=== PATIENT | female | born 1995 | race Caucasian/White ===

== ENCOUNTER → 2017-11-25 16:32 | Outpatient (CLI) | payer OTHER, SELFPAY | PROVIDERS: Family Provider Family Medicine; PCP Family Medicine; Visit Provider Nurse Practitioner Women's Health | DX: N98.9 Complication associated with artificial fertilization, unspecified (principal) | CPT/HCPCS: 87070; 87205 ==

== ENCOUNTER → 2018-10-31 07:15 | Outpatient (CLI) | payer BC, SELFPAY ==
[2018-10-21 14:54] VITALS: BMI 19.1
[2018-10-31 08:05] LABS: Estradiol 29.4 pg/mL; Follicle Stimulating Hormone 6.1 mIU/mL; Prolactin 17.3 ng/mL; Thyroid Stim Hormone (TSH) 2.27 uIU/mL (0.358-3.74)
== END ==
PROVIDERS: Family Provider Family Medicine; PCP Family Medicine; Referring Provider Nurse Practitioner Women's Health; Visit Provider Nurse Practitioner Women's Health
DX: N97.0 Female infertility associated with anovulation (principal)
CPT/HCPCS: 36415; 82670; 83001; 84146; 84443

== ENCOUNTER → 2018-11-18 12:31 | Outpatient (CLI) | payer BC, SELFPAY ==
[2018-10-21 14:54] VITALS: BMI 19.1
[2018-11-18 14:12] LABS: Progesterone Level 7.22 ng/mL (See Comment)
== END ==
PROVIDERS: Family Provider Family Medicine; PCP Family Medicine; Referring Provider Nurse Practitioner Women's Health; Visit Provider Nurse Practitioner Women's Health
DX: N97.0 Female infertility associated with anovulation (principal)
CPT/HCPCS: 36415; 84144

== ENCOUNTER → 2018-12-31 13:30 | Outpatient (CLI) | payer BC, SELFPAY ==
[2018-12-31 11:13] VITALS: BMI 19.1
[2019-01-05 17:30] LABS: HPV Reflexed? NOT INDICATED
== END ==
PROVIDERS: Family Provider Family Medicine; PCP Family Medicine; Referring Provider Obstetrics & Gynecology; Visit Provider Obstetrics & Gynecology
DX: Z12.4 Encounter for screening for malignant neoplasm of cervix (principal)
CPT/HCPCS: 87624; 88175; G0145

== ENCOUNTER → 2019-01-05 11:41 | Outpatient (CLI) | payer BC, SELFPAY ==
[2018-10-21 14:54] VITALS: BMI 19.1
[2018-12-31 11:13] VITALS: BMI 19.1
--- NOTE | 2019-01-05 12:29 | RAD_ITS ---
STUDY: HYSTEROSALPINGOGRAM. REASON FOR EXAM: Female, 23 years old. Infertility. FLUOROSCOPY TIME (if supplied): (0:12) minutes/seconds. 2 images were obtained. TECHNIQUE: A hysterosalpingogram was performed by the marine pipefitter helper. Imaging was provided. COMPARISON: None. FINDINGS: The uterus is unremarkable. Both fallopian tubes were visualized and are patent bilaterally. RAD/Salpingogram IMPRESSION: Normal hysterosalpingogram. Electronically Signed: Srinivasa Church, at 12:47 EDT , Service support ,
--- NOTE | 2019-01-07 04:13 | OP.PCM_ITS ---
Problem List (1) Infertility Status: Acute Report of Operation Date of Procedure: 01/05/19 Description of Surgical Findings:: Preop diagnosis: Infertility Postop diagnosis: Same plus bilateral tubal patency Procedure: Hysterosalpingogram Surgeon: Sherri Velazquez Implantable devices: None Complications: None Findings: Bilateral tubal patency and normal uterine cavity Operative details: Patient was taken to the x-ray room and was placed on the x- ray table and was in the dorsal lithotomy position. Speculum was placed in the vagina and the cervix prepped with Betadine and the HSG catheter was easily introduced into the uterus and speculum removed. Radiologist was brought in and while pushing radiopaque dye into the uterus via the HSG catheter the radiologist took multiple images and views and confirmed bilateral tubal patency seen. No gross uterine filling defects or abnormalities were seen. All instruments removed from the vagina and the uterus without complication. Patient tolerated the procedure well.
== END ==
PROVIDERS: Family Provider Family Medicine; PCP Family Medicine; Referring Provider Obstetrics & Gynecology; Visit Provider Obstetrics & Gynecology
DX: N97.9 Female infertility, unspecified (principal)
CPT/HCPCS: 58340; 74740

== ENCOUNTER → 2020-09-12 15:52 | Outpatient (CLI) | payer BC, SELFPAY ==
[2020-01-06 15:37] VITALS: BMI 19.1
[2020-09-12 17:57] LABS: Hematocrit 40.8 % (37-47); Mean Corp Hgb Conc 31.9 g/dL (32-36); Mean Corpuscular Hgb 28.3 pg (27.0-32.0); Mean Corpuscular Volume 88.7 fL (81-99); Platelet Count 273 K/mm3 (150-450); RBC Distribution Width CV 13.6 % (11.6-14.6); RBC Distribution Width SD 44.4 fl (35.1-43.9); White Blood Count 8.3 K/mm3 (4.4-11.0)
[2020-09-12 18:12] LABS: ALB/GLOB Ratio 0.9 RATIO (0.9-2.4); AST(SGOT) 38 U/L (15-37); Alanine Aminotransfer ALT/SGPT 29 U/L (13-56); Albumin, Serum 4.1 g/dL (3.2-5.0); Alkaline Phosphatase 47 U/L (45-117); Anion Gap 6 (5-15); BUN 15 mg/dL (7-18); BUN/Creat Ratio 19.8 RATIO (10-20); Calcium,Total 9.1 mg/dL (8.5-10.1); Chloride 104 mmol/L (98-107); Creatinine, Serum 0.76 mg/dL (0.55-1.02); EST Glomerular Filtration Rate 99 mL/min (>60); Est Glom Filt Rate - Afr Amer 120 mL/min (>60); Globulin 4.5 g/dL (2.2-4.2); Glucose 74 mg/dL (74-106); Potassium 3.3 mmol/L (3.5-5.1); Protein, Total 8.6 g/dL (6.4-8.2); Sodium Level 138 mmol/L (136-145)
[2020-09-12 18:15] LABS: Hemoglobin A1c 5.4 % (3.8-5.6)
[2020-09-12 18:52] LABS: HIV - WCH Non-Reactive (Nonreactive); Hepatitis B Surface Antigen Non-Reactive (Nonreactive); Hepatitis C Antibody Non-Reactive (Nonreactive); Rubella IgG Reactive (Nonreactive); Vitamin D,25 Hydroxy 35.4 ng/mL
[2020-09-15 01:40] LABS: Rapid Plasmin Reagin (RPR) NONREACTIVE (NONREACTIVE)
[2020-09-17 10:48] LABS: Anti-Mullerian Hormone,Serum 1.77 ng/mL (.); V-Zoster IgG (Immunity) > 4000 index (Immune >165)
== END ==
PROVIDERS: PCP Family Medicine; Referring Provider Obstetrics & Gynecology Reproductive Endocrinology; Visit Provider Obstetrics & Gynecology Reproductive Endocrinology
DX: E28.9 Ovarian dysfunction, unspecified (principal)
CPT/HCPCS: 36415; 80053; 82306; 82627; 83036; 83516; 84146; 84403; 85027; 86592; 86703; 86762; 86787; 86803; 86900; 86901; 87340; 82626

== ENCOUNTER → 2021-01-13 14:17 | Outpatient (CLI) | payer BC, SELFPAY ==
[2021-01-10 13:27] VITALS: BMI 19.1
--- NOTE | 2021-01-13 14:18 | US_ITS ---
STUDY: ULTRASOUND BREAST - LEFT REASON FOR EXAM: Female, 25 years old. Palpable lump left breast. TECHNIQUE: Axial and longitudinal images of the LEFT breast were performed with a high resolution ultrasound transducer. # OF IMAGES: 18 COMPARISON: Comparison is made with prior mammogram done earlier in the day. FINDINGS: LEFT Breast: The lower inner quadrant of the left breast was examined by ultrasound. No sonographic abnormality is seen. US/Breast Limited Unilateral IMPRESSION: No sonographic abnormality is seen. ASSESSMENT CATEGORY: BIRADS Category 1: Negative. A letter regarding these results will be sent to the patient by the facility within 30 days. Electronically Signed: Srinivasa Church MD at 13:07 EDT , Service support ,
--- NOTE | 2021-01-13 14:19 | BI_ITS ---
MAMMOGRAPHY - BILATERAL DIAGNOSTIC REASON FOR EXAM: Female, 25 years old. Breast lump in the left lower inner quadrant. PERTINENT HISTORY: Non-contributory. TECHNIQUE: Digital bilateral breast kori (3D mammographic acquisition) in the CC and MLO projections. 2-D mediolateral oblique (MLO) and craniocaudad (CC) views of both breasts were obtained. CAD: Full Field Digital Mammography with Computer Added Detection was performed. COMPARISON: None. Baseline examination. FINDINGS: Breast Composition: The breasts are extremely dense, which lowers the sensitivity of mammography. There are no dominant masses or suspicious calcifications. No other significant abnormalities are identified. BI/DIAG MAMM W/CAD, BILAT IMPRESSION: Negative diagnostic mammogram. With the patient''s history of a palpable lump in the lower inner quadrant of the left breast, correlation with ultrasound is recommended. ASSESSMENT CATEGORY: BIRADS Category 0: Incomplete. Need additional imaging evaluation. A letter regarding these results will be sent to the patient by the facility within 30 days. Approximately 10% of breast cancers are not detected by mammography. A normal mammogram should not delay biopsy of a clinically suspicious abnormality. Electronically Signed: Srinivasa Church MD at 15:10 EDT , Service support ,
== END ==
PROVIDERS: PCP Family Medicine; Referring Provider Obstetrics & Gynecology; Visit Provider Obstetrics & Gynecology
DX: N63.20 Unspecified lump in the left breast, unspecified quadrant (principal)
CPT/HCPCS: 76642; 77062; 77066; G0279

== ENCOUNTER → 2021-12-14 | Outpatient (CLI) | payer BC, SELFPAY ==
[2021-12-14 15:35] LABS: Absolute Neutrophil Count 6.2 X10^3/uL (2.0-7.7); Basophil# 0.04 X10^3/uL; Basophil% 0.4 % (0-1); Hemoglobin 12.9 g/dL (12.0-15.0); Lymphocyte % 26.9 % (19-41); Mean Corp Hgb Conc 33.9 g/dL (32-36); Mean Corpuscular Hgb 29.8 pg (27.0-32.0); Mean Corpuscular Volume 87.8 fL (81-99); Mean Platelet Vol. 9.2 fl (6.2-12.0); Monocyte% 7.2 % (0-10); NRBC Flagged by Analyzer 0 % (0-5); Neutrophil # 6.19 X10^3/uL (2.7-7.7); Platelet Count 292 K/mm3 (150-450); RBC Distribution Width CV 13.3 % (11.6-14.6); RBC Distribution Width SD 42.7 fl (35.1-43.9); Red Blood Count 4.33 M/mm3 (4.2-5.4); White Blood Count 9.7 K/mm3 (4.4-11.0)
[2021-12-14 16:32] LABS: NATERA MAILED SPECIMEN
[2021-12-14 16:54] LABS: Amphetamine Urine VISTA NEGATIVE (<1000 ng/mL); Barbiturate Urine VISTA NEGATIVE (< 200 ng/mL); Benzodiazepine Urine VISTA NEGATIVE (< 200 ng/mL); Cocaine Urine VISTA NEGATIVE (< 300 ng/mL); Ecstacy Urine VISTA NEGATIVE (< 500 ng/mL); Methadone Urine VISTA NEGATIVE (< 300 ng/mL); PCP Urine VISTA NEGATIVE (< 25 ng/mL); THC Urine VISTA NEGATIVE (< 50 ng/mL); Vista UDS pH Range 4
[2021-12-15 09:28] LABS: HIV - WCH Non-Reactive (Nonreactive); Hepatitis B Surface Antigen Non-Reactive (Nonreactive); Hepatitis C Antibody Non-Reactive (Nonreactive); Rubella IgG Reactive (Nonreactive); Syphilis Antibodies Non-reactive
[2021-12-18 12:08] LABS: Chlamydia By Nucleic Acid AMP Negative (Negative)
[2021-12-18 12:19] LABS: Gonococcus By Nucleic Acid AMP Negative (Negative)
[2021-12-21 15:27] LABS: HPV APTIMA, High Risk Negative (Negative)
== END | disposition home or self-care (01) ==
LOC: PAVLAB 15:20
PROVIDERS: PCP Family Medicine; Referring Provider Obstetrics & Gynecology; Visit Provider Obstetrics & Gynecology
DX: Z34.90 Encounter for supervision of normal pregnancy, unspecified, unspecified trimester (principal)
CPT/HCPCS: 36415; 80307; 85025; 86703; 86762; 86780; 86803; 86850; 86900; 86901; 87086; 87340; 87491; 87591; 87624; 88175; G0145

== ENCOUNTER → 2022-03-09 | Outpatient (CLI) | payer BC, SELFPAY ==
[2022-03-09 17:54] LABS: Hematocrit 32.1 % (37-47); Hemoglobin 10.4 g/dL (12.0-15.0); Mean Corp Hgb Conc 32.4 g/dL (32-36); Mean Corpuscular Hgb 30.4 pg (27.0-32.0); Mean Corpuscular Volume 93.9 fL (81-99); Platelet Count 241 K/mm3 (150-450); RBC Distribution Width CV 14.2 % (11.6-14.6); RBC Distribution Width SD 48.9 fl (35.1-43.9); Red Blood Count 3.42 M/mm3 (4.2-5.4)
== END | disposition home or self-care (01) ==
LOC: LAB 15:59
PROVIDERS: PCP Family Medicine; Referring Provider Obstetrics & Gynecology; Visit Provider Obstetrics & Gynecology
DX: O26.86 Pruritic urticarial papules and plaques of pregnancy (PUPPP) (principal); Z3A.00 Weeks of gestation of pregnancy not specified
CPT/HCPCS: 36415; 85027

== ENCOUNTER → 2022-04-24 | Outpatient (CLI) | payer BC, SELFPAY ==
[2022-04-24 15:11] LABS: Absolute Lymphocyte Count 1.54 X10^3/uL (0.83-4.51); Absolute Neutrophil Count 6.8 X10^3/uL (2.0-7.7); Basophil# 0.03 X10^3/uL; Basophil% 0.3 % (0-1); Eosinophil# 0.06 X10^3/uL; Eosinophils% 0.7 % (0-5); Hematocrit 33.6 % (37-47); Lymphocyte # 1.54 X10^3/ul (0.83-4.51); Lymphocyte % 16.7 % (19-41); Mean Corp Hgb Conc 32.7 g/dL (32-36); Mean Corpuscular Hgb 30.6 pg (27.0-32.0); Mean Corpuscular Volume 93.6 fL (81-99); Mean Platelet Vol. 9.8 fl (6.2-12.0); Monocyte# 0.64 X10^3/uL; Monocyte% 6.9 % (0-10); NRBC Flagged by Analyzer 0 % (0-5); Neutrophil # 6.78 X10^3/uL (2.7-7.7); Neutrophil % 73.7 % (47-70); Platelet Count 209 K/mm3 (150-450); RBC Distribution Width CV 15.2 % (11.6-14.6); RBC Distribution Width SD 51.8 fl (35.1-43.9); Red Blood Count 3.59 M/mm3 (4.2-5.4); White Blood Count 9.2 K/mm3 (4.4-11.0)
[2022-04-24 15:26] LABS: Glucose Challenge Gest 1H 50g 119 mg/dL (70-140)
== END | disposition home or self-care (01) ==
LOC: PAVLAB 14:45
PROVIDERS: PCP Family Medicine; Referring Provider Nurse Practitioner Women's Health; Visit Provider Nurse Practitioner Women's Health
DX: Z34.90 Encounter for supervision of normal pregnancy, unspecified, unspecified trimester (principal)
CPT/HCPCS: 36415; 82950; 85025

== ENCOUNTER → 2022-05-23 | Outpatient (CLI) | payer BC, SELFPAY ==
[2022-05-23 16:12] LABS: Absolute Lymphocyte Count 2.36 X10^3/uL (0.83-4.51); Absolute Neutrophil Count 6.4 X10^3/uL (2.0-7.7); Basophil# 0.04 X10^3/uL; Basophil% 0.4 % (0-1); Eosinophil# 0.07 X10^3/uL; Eosinophils% 0.7 % (0-5); Hematocrit 33.2 % (37-47); Hemoglobin 10.9 g/dL (12.0-15.0); Lymphocyte # 2.36 X10^3/ul (0.83-4.51); Lymphocyte % 24.5 % (19-41); Mean Corp Hgb Conc 32.8 g/dL (32-36); Mean Corpuscular Hgb 30.8 pg (27.0-32.0); Mean Corpuscular Volume 93.8 fL (81-99); Monocyte# 0.75 X10^3/uL; Monocyte% 7.8 % (0-10); NRBC Flagged by Analyzer 0.3 % (0-5); Neutrophil # 6.36 X10^3/uL (2.7-7.7); Neutrophil % 65.9 % (47-70); Platelet Count 175 K/mm3 (150-450); RBC Distribution Width CV 14.5 % (11.6-14.6); Red Blood Count 3.54 M/mm3 (4.2-5.4); White Blood Count 9.7 K/mm3 (4.4-11.0)
[2022-05-23 16:36] LABS: ALB/GLOB Ratio 0.6 RATIO (0.9-2.4); AST(SGOT) 18 U/L (15-37); Alanine Aminotransfer ALT/SGPT 13 U/L (13-56); Albumin, Serum 2.5 g/dL (3.2-5.0); Alkaline Phosphatase 90 U/L (45-117); Anion Gap 7 (5-15); BUN 11 mg/dL (7-18); BUN/Creat Ratio 14.7 RATIO (10-20); Chloride 105 mmol/L (98-107); Creatinine, Serum 0.75 mg/dL (0.55-1.02); EST Glomerular Filtration Rate 99 mL/min (>60); Est Glom Filt Rate - Afr Amer 120 mL/min (>60); Globulin 4.5 g/dL (2.2-4.2); Glucose 87 mg/dL (74-106); Potassium 4.1 mmol/L (3.5-5.1); Sodium Level 136 mmol/L (136-145)
[2022-05-23 19:49] LABS: Protein, Urine (Random) 13.3 mg/dL (<11.9); Protein:Creat Ratio 231 mg/g CRE (0-200)
== END | disposition home or self-care (01) ==
PROVIDERS: PCP Family Medicine; Referring Provider Obstetrics & Gynecology; Visit Provider Obstetrics & Gynecology
DX: O16.3 Unspecified maternal hypertension, third trimester (principal); Z3A.00 Weeks of gestation of pregnancy not specified
CPT/HCPCS: 36415; 80053; 82570; 84156; 85025

== ENCOUNTER 2022-06-06 16:20 | Outpatient (CLI) | payer BC, SELFPAY ==
[2022-06-06] VITALS (8 sets, daily range): BP systolic 124–155; BP diastolic 83–94; PULSE 73–88; TEMP 36.9; O2SAT 98–100; BMI 24.5
[2022-06-06 17:23] LABS: Hematocrit 35.2 % (37-47); Hemoglobin 11.8 g/dL (12.0-15.0); Mean Corp Hgb Conc 33.5 g/dL (32-36); Mean Corpuscular Hgb 31.5 pg (27.0-32.0); Mean Corpuscular Volume 93.9 fL (81-99); Mean Platelet Vol. 11.8 fl (6.2-12.0); Platelet Count 175 K/mm3 (150-450); RBC Distribution Width CV 14.9 % (11.6-14.6); RBC Distribution Width SD 51.1 fl (35.1-43.9); Red Blood Count 3.75 M/mm3 (4.2-5.4); White Blood Count 9.9 K/mm3 (4.4-11.0)
[2022-06-06 17:38] LABS: Protein, Urine (Random) 83.4 mg/dL (<11.9); Protein:Creat Ratio 1163 mg/g CRE (0-200)
[2022-06-06 17:40] LABS: AST(SGOT) 21 U/L (15-37); Alanine Aminotransfer ALT/SGPT 14 U/L (13-56); EST Glomerular Filtration Rate 92 mL/min (>60); Est Glom Filt Rate - Afr Amer 112 mL/min (>60); Estimated Creatinine Clearance 88.15 ml/min; Uric Acid 4.6 mg/dL (2.6-6.0)
[2022-06-06] MEDS: 0.9% Saline Lock 10 ML Syringe IV (18:16)
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
[2022-06-06] MEDS: Betamethasone/Betamethasone 30 MG/5 ML Vial 12 MG IM (18:41)
== END 2022-06-06 18:45 | disposition home or self-care (01) ==
LOC: WPOUT 16:23 → WP 16:23
PROVIDERS: PCP Family Medicine; Referring Provider Obstetrics & Gynecology; Visit Provider Obstetrics & Gynecology
DX: O14.90 Unspecified pre-eclampsia, unspecified trimester (principal)
CPT/HCPCS: 59025; 59050; 82565; 82570; 84156; 84450; 84460; 84550; 85027; 96372; 99218; A4216; G0378; J0702

== ENCOUNTER 2022-06-07 17:55 | Outpatient (CLI) | payer BC, SELFPAY ==
[2022-06-07 18:00] VITALS: BMI 24.7
[2022-06-07 18:08] VITALS: BP 157/84; PULSE 74; TEMP 36.7
[2022-06-07 18:09] VITALS: BP 146/73; PULSE 85
[2022-06-07] MEDS: Betamethasone/Betamethasone 30 MG/5 ML Vial 12 MG IM (18:13)
--- NOTE | 2022-06-07 18:16 | OB.TRI.PN ---
Progress Notes Date of Service: 06/07/22 Progress Note: celestone today for prematurity preeclampsia
== END 2022-06-07 18:18 | disposition home or self-care (01) ==
LOC: WPOUT 17:57 → WP 17:58
PROVIDERS: PCP Family Medicine; Referring Provider Obstetrics & Gynecology; Visit Provider Obstetrics & Gynecology
DX: O14.90 Unspecified pre-eclampsia, unspecified trimester (principal); Z79.899 Other long term (current) drug therapy; Z3A.00 Weeks of gestation of pregnancy not specified; Z23 Encounter for immunization
CPT/HCPCS: 96372; 99218; G0378; J0702

== ENCOUNTER → 2022-06-08 | Outpatient (CLI) | payer BC, SELFPAY ==
--- NOTE | 2022-06-08 15:37 | US_ITS ---
STUDY: OBSTETRICAL ULTRASOUND - BIOPHYSICAL PROFILE REASON FOR EXAM: Female, 26 years old DFM. LMP: 10/04/2021. PRIOR ULTRASOUND: None. TECHNIQUE: Transabdominal TECHNICAL QUALITY: Adequate. FINDINGS: There is a single intrauterine fetus. The fetus is in a cephalic presentation. There is demonstrated cardiac activity with a heart rate of 147 bpm. There is a normal amniotic fluid volume. The largest amniotic fluid pocket measures 8.3 cm. The amniotic fluid index (IBIS) is 14.41 cm. The placenta is anterior in location and is not low lying. There is a left lateral accessory lobe. There are Grade 3 placental changes. Age by LMP: 35 weeks, 2 days. FOZIA by LMP: 07/11/2022. BIOPHYSICAL PROFILE: Breathing Movements (FBM): 2 Gross Body Movements (GBM): 2 Tone (FT): 2 Amniotic Fluid Volume (AFV): 2 TOTAL SCORE: US/Biophysical Prof W/O Non Stres IMPRESSION: Normal biophysical profile of 03/26. Electronically Signed: Nate Olmos DO at 18:13 EDT ,
== END | disposition home or self-care (01) ==
LOC: US 15:36
PROVIDERS: PCP Family Medicine; Referring Provider Obstetrics & Gynecology; Visit Provider Obstetrics & Gynecology
DX: O36.8190 Decreased fetal movements, unspecified trimester, not applicable or unspecified (principal)
CPT/HCPCS: 76819

== ENCOUNTER 2022-06-09 20:10 | Inpatient (IN) | payer BC, SELFPAY ==
[2022-06-07 18:08] VITALS: TEMP 36.7
[2022-06-09] VITALS (26 sets, daily range): BP systolic 83–168; BP diastolic 58–116; PULSE 61–135; RESP 16–18; TEMP 36.8–38.1; O2SAT 94–100; BMI 25.2
[2022-06-09 19:38] LABS: Protein:Creat Ratio 1395 mg/g CRE (0-200)
[2022-06-09] MEDS: Labetalol (Prefilled) 20 MG/4 ML IV (20:20)
[2022-06-09] MEDS: Lactated Ringers 1,000 ML 999 ML IV (20:20)
[2022-06-09 20:26] LABS: Hematocrit 33.9 % (37-47); Hemoglobin 10.9 g/dL (12.0-15.0); Mean Corp Hgb Conc 32.2 g/dL (32-36); Mean Corpuscular Hgb 30.2 pg (27.0-32.0); Mean Corpuscular Volume 93.9 fL (81-99); Mean Platelet Vol. 12.3 fl (6.2-12.0); Platelet Count 203 K/mm3 (150-450); RBC Distribution Width CV 15.1 % (11.6-14.6); RBC Distribution Width SD 52.1 fl (35.1-43.9); Red Blood Count 3.61 M/mm3 (4.2-5.4); White Blood Count 12.3 K/mm3 (4.4-11.0)
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
--- NOTE | 2022-06-09 20:48 | DCINST_ITS ---
Discharge Instructions Diet Discharge Diet: No restrictions Activity Discharge Activity: May Not Drive (for 2 weeks or while taking narcotic pain medications.), May Shower and May Take a Tub Bath (in 7 days.) May resume sexual activity in: 4-6 weeks Weight Bearing Status: Full weight bearing Lifting Restrictions: 20 pounds Dressing / Incision Call your doctor if your incision/area has: Continuous Slow Oozing, Sudden Increased Bleeding, Increased Pain/ Swelling, Increased Redness and Foul Smelling Discharge Call your doctor if you observe: Fever of 101 or Higher and Using more than 1 pad per hour Suture Line Care: Avoid Pulling/Pushing and Avoid Pinching/Bending Cleanse incision/area with: Soap & Water and Keep Dressing Clean & Dry Follow Up Care Please Follow Up With: Mya Cantu DO When: Call [phone] to make an appointment for an incision check in 1-2 weeks. Test Results: Test results from this visit will be discussed in further detail at your follow- up appointment, if applicable. Discharge Plan Admission Admit Date/Time: 06/09/22 20:10 Attending Provider: Mya Cantu Primary Care Provider: Shawanda Ortega Discharge Orders/Prescriptions Prescriptions: No Action prenat.vits,andrea,[id number] tablet 1 tab PO DAILY ferrous sulfate [iron] 325 mg (65 mg iron) Tablet 325 mg PO DAILY albuterol 90 mcg/actuation Aerosol 90 mcg INHALATION PRN PRN (Reason: asthma) Referrals / Follow Up: Shawanda Ortega DO [Primary Care Provider] -
[2022-06-09] MEDS: Sodium Citrate/Citric Acid 30 ML UDC PO (20:58)
[2022-06-09] MEDS: Acetaminophen 500 MG Tablet 1000 MG PO (20:58)
[2022-06-09] MEDS: Cefazolin 2 GM in 0.9% Normal Saline 100 ML IV (21:12)
[2022-06-09] MEDS: Lactated Ringers 1,000 ML 150 ML IV (21:15)
--- NOTE | 2022-06-09 21:24 | PLAC_PTH ---
PATIENT: GUCCI GOMEZ LOC: [facility] U#:[id number] AGE/SX: 26/F ROOM: WP003 RE06/09/[address]: Dr. Mya Cantu DO : 1995 BED: 1 DIS: 06/14/2022 SPEC #: [id number] RECD: 06/10/22 03:10 STATUS: ANTONIO ALCIRA #: [id number] FABIOLA: 06/09/22 21:[address]: Mya Cantu DEPT: SURGICAL PATHOLOGY RECD BY: Meenakshi Choudhary ENTERED: 06/11/22 08:53 SP TYPE: PLACENTA OTHR DR: Dr. Shawanda Ortega DO Tissues: Placenta, NOS Procedures: Surgery Specimen Level V HEADER OPERATION: Primary section PRE-OP DIAGNOSIS: Low lying placenta and suspect placental acreda TISSUE SUBMITTED: Placenta MICROSCOPIC DIAGNOSIS Epps placenta (486 gm): Umbilical cord ? trivascular with no inflammation. Placental membranes - No pathologic change. Placental disc ? Manny-Gallito change, increased intraparenchymal fibrin plaques and microcalcifications. AM:denisha 06/12/2022 MICROSCOPIC DESCRIPTION Slides are reviewed. GROSS DESCRIPTION SPECIMEN: PLACENTA / CLINICAL INFORMATION: A. Weight: 2.08 kg B. Gestational Age: 35 weeks C. Sex: Female PLACENTAL WEIGHT (POST FIXATION): 486 gm PLACENTAL DIMENSIONS: 25 x 12 x 2.5 cm PLACENTAL SHAPE: Usual ovoid PLACENTAL WEIGHT FOR GESTATIONAL AGE: Within 10-99th percentile (over/under percentile) MEMBRANES - Present A. Insertion: Marginal B. Site of rupture from edge: At edge of placental disc C. Color of membrane: Stephenson-miguel D. Abnormalities: None UMBILICAL CORD - Present A. Color: Stephenson-miguel B. Insertion: Eccentric C. Length: 33 cm D. Diameter: 1.5 cm E. Number of vessels: Three F. Abnormalities: None PLACENTAL DISC - Present A. Color of surface: Stephenson-miguel B. surface abnormalities: None C. Maternal cotyledons: Intact with minimal tears D. Attached retro placental clot: No clot E. Cut surface: Dark red and spongy F. Lesions: None G. Separate clot: Absent SECTIONS SUBMITTED: 1. Umbilical cord ( end notched) 2. Umbilical cord, placental end 3. Membrane roll 4. Placental disc, and maternal surfaces 5. Placental disc, and maternal surfaces 6. Placental disc, and maternal surfaces AM:denisha 06/11/2022 TC:5 CPT: 79494
[2022-06-09] MEDS: miSOPROStol 200 MCG Tablet 1000 MCG VAGINAL (21:28)
--- NOTE | 2022-06-09 22:04 | EX.PCM.OBRPT ---
Assessment & Plan (1) Pre-eclampsia: (2) Placenta previa antepartum in second trimester: COMMENT: FU at 28 weeks, pelvic rest US 04/20/22: not resolved, plan csection for 36-37 wks. now low lying at 1 cm but MFM recommending section. (3) Asthma affecting , antepartum: COMMENT: controlled mild intermittent, albuterol (4) Supervision of high risk , antepartum: COMMENT: PRR FOZIA:07/11/22 shazia Peña Spouse: Canelo (5) : QUALIFIERS: Weeks of gestation: 35 weeks Qualified Code(s): Z3A.35 - 35 weeks gestation of COMMENT: NIPT LR- Negative carrier patient and FOB at I. Anatomy US normal (6) Conceived by in vitro fertilization: COMMENT: [facility]. Oral estradiol and progesterone inj until 12/13 echo 22-24 wk-scheduled with MF, 03/15 nl echo Maternal Data Information FOZIA Calculator Estimated Delivery Date Method Current WG Current Estimate 07/11/22 Ultrasound #1 35w 3d Other Estimates 07/08/22 LMP (Certain) 35w 6d Final FOZIA: 07/11/22 Final FOZIA Source: LMP (IVF ) Details Operative Information Date of Procedure: 06/09/22 Pre-Operative Diagnosis: 35 weeks 3 days, , Pre-eclampsia with severe features, low lying placenta Post-Operative Diagnosis: 35 weeks 3 days, , Pre-eclampsia with severe features, low lying placenta, suspect placenta accreta Classification: HEATHER Procedure Type: low transverse supervisor accounts receivable #1: Shayy Lu Type of Anesthesia: Spinal Anesthesiologist: Lennie Vasquez Antibiotic Given: Ancef 2 grams IV x1 Drain: Vinson to straight drain Estimated Blood Loss: 1300 Findings Description of Procedure: Spinal anesthesia was placed without difficulty. Vinson catheter was placed. The patient was placed in the dorsal supine position with leftward tilt. Patient was prepped and draped in the normal sterile fashion. Pfannenstiel skin incision was made with the scalpel and carried through to the underlying layer of fascia with the scalpel. Fascia was nicked in the midline and the incision extended laterally. The rectus bellies were dissected off superiorly and inferiorly with out complication both sharply and bluntly. The peritoneum was entered digitally. The incision was stretched and a low transverse uterine incision was made with the scalpel. The placenta was noted to be anterior and the infant's head was found lying behind it. The membranes were ruptured and the infant's head was delivered atraumatically followed by the anterior and posterior shoulders without complication the rest of the delivered. The cord was clamped and cut and the infant was handed off to awaiting nurse. The placenta was delivered manually and was found to be adherent to the uterine wall over a small portion just a few cm above the incision site. A three-vessel cord was noted and the placenta was inspected and passed off for pathology analysis. The uterus was exteriorized cleared of all clots and debris. 1000mg of cytoted was inserted intrauterine and the incision was closed in a double layer closure using #1Vicryl and #1 Monocryl. TXA was also started at this time. A left sided broad ligament hematoma and a lower uterine segment hematoma was noted both small and minor. Sutures were placed around the left uterine artery and over the side of the lower uterine segment to creat excellent hemostasis. Careful examination was performed before returning the uterus to the abdomen. The ovaries and fallopian tubes were noted to be within normal limits. The uterus was returned to the maternal abdomen and gutters were cleared of all clots and debris. The peritoneum was closed with 3-0 Monocryl in a running fashion. Gloves were changed prior to fascial closure. Fascia was closed with 0 PDS in a running fashion. Subcutaneous tissue was copiously irrigated and the skin was closed with 3-0 Monocryl in a subcuticular fashion. Mepilex dressing was applied without complication. Patient was taken to recovery in stable condition. It was discussed with the patient that based on the clinical information obtained during this encounter, combined with her history, at this time I would recommend possible TOLAC or rpt for future deliveries if further pregnancies are desired and adequate time to recover has occurred. Presentation: Positive for Vertex Amniotic Membrane Rupture Type: Artificial Amniotic Fluid Description: Clear Placental Delivery Description: Manual Removal Placenta Disposition: Sent to Pathology Cord Vessel Description: 3 Vessels Cord Entanglement: None A Gender: Female (1 minute): 8 (5 minute): 9 Delayed Cord Clamping: Yes Complications Risks of Surgery Discussed w/Patient: Bleeding, Anesthesia Risks, Infection, Need for Future C-Sections and Injury to surrounding structure(s) including bowel and bladder Multi Select Codes Urinary/Genital Urinary/Genital CPT Codes: 39258 Delivery global pkg
[2022-06-09] MEDS: Lactated Ringers 1,000 ML 100 ML IV (22:20)
[2022-06-09 22:46] LABS: Hematocrit 27.3 % (37-47); Mean Corpuscular Hgb 31.7 pg (27.0-32.0); Mean Corpuscular Volume 96.1 fL (81-99); Mean Platelet Vol. 11.4 fl (6.2-12.0); POSITIVE COUNT YES; POSITIVE MORPHOLOGY YES; Platelet Count 193 K/mm3 (150-450); RBC Distribution Width CV 15.2 % (11.6-14.6); RBC Distribution Width SD 52.6 fl (35.1-43.9); Red Blood Count 2.84 M/mm3 (4.2-5.4); White Blood Count 13.5 K/mm3 (4.4-11.0)
[2022-06-09 22:53] LABS: Differential Indicated MANUAL DIFF
[2022-06-09 22:56] LABS: International Normalized Ratio 1.1; Prothrombin Time (Protime)PT. 13.7 SECONDS (11.7-14.9)
[2022-06-09 22:57] LABS: Partial Thromboplast Time 28.7 Seconds (24.1-36.2)
[2022-06-09 23:39] LABS: Lymphocyte 28 % (19-41); Metamyelocyte 1 % (0-1); Monocyte 7 % (0-10); Myelocyte 2 % (0-0); Neutrophil-Band 3 % (0-5); Neutrophil-Segmented 59 % (47-70); Nucleated Red Bld Cells,Manual 1 % (0-5); Total Cells Counted 100 (MANUAL DIFF)
[2022-06-09 23:43] LABS: Absolute Lymphocyte Count 3.77 X10^3/uL (0.83-4.51); Absolute Neutrophil Count 8.4 X10^3/uL (2.0-7.7)
[2022-06-09 23:44] LABS: Anisocytosis RARE; Hypochromasia RARE; Macrocytosis RARE; Platelet Estimate ADEQUATE (ADEQ); Red Cell Morphology N CHROM NORMAL (NORM C&C)
[2022-06-10] VITALS (25 sets, daily range): BP systolic 126–151; BP diastolic 66–98; PULSE 62–114; RESP 16–18; TEMP 36.6–37.9; O2SAT 93–100
--- NOTE | 2022-06-10 00:04 | NURSING ---
Multiple blankets removed from patient. Room temp turned down.
[2022-06-10] MEDS: Acetaminophen 500 MG Tablet 1000 MG PO ×4 (02:47→21:26)
[2022-06-10] MEDS: Cefazolin 1 GM/50 ML BAG IV ×2 (03:15→11:44)
[2022-06-10 06:35] LABS: Hematocrit 25.2 % (37-47); Hemoglobin 8.2 g/dL (12.0-15.0); Mean Corp Hgb Conc 32.5 g/dL (32-36); Mean Corpuscular Hgb 30.7 pg (27.0-32.0); Mean Corpuscular Volume 94.4 fL (81-99); Platelet Count 140 K/mm3 (150-450); RBC Distribution Width CV 15.2 % (11.6-14.6); RBC Distribution Width SD 52.5 fl (35.1-43.9); Red Blood Count 2.67 M/mm3 (4.2-5.4); White Blood Count 20.2 K/mm3 (4.4-11.0)
[2022-06-10] MEDS: Senna/Docusate Sodium 1 Tablet PO (09:27)
--- NOTE | 2022-06-10 10:55 | PCM.PN.OB ---
Subjective Subjective Patient is laying in bed comfortably without complaints. She states that she slept on an off during the night. Lochia is mild and pain is minimal. Objective Data Objective Data Vital Signs: Vital Signs Temp Pulse Resp BP Pulse Ox O2 Del Method 100.0 F H 70 18 138/80 H 100 Room Air 06/10/22 08:05 06/10/22 09:00 06/10/22 09:00 06/10/22 08:06 06/10/22 09:00 06/10/22 09:00 Oxygen Delivery Method Room Air Weight: 142 lb 6.4 oz Body Mass Index (BMI) 25.2 Intake & Output: Intake and Output for Last 24 Hours 06/08/22 06/09/22 06/10/22 23:59 23:59 23:59 Intake Total 162.5 / 162.5 2870 / 2870 Output Total 500 / 500 1000 / 1000 Balance -337.5 / -337.5 1870 / 1870 Lab / Micro Data Result Diagrams: 06/10/22 06:25 Labs: Laboratory Results - last 24 hr 06/09/22 19:15: U Random Total Protein 114.0 H, Urine Creatinine 81.70, Protein/Creatinin Ratio 1395 H 06/09/22 19:40: WBC 12.3 H, RBC 3.61 L, Hgb 10.9 L, Hct 33.9 L, MCV 93.9, MCH 30.2, MCHC 32.2, RDW Std Deviation 52.1 H, RDW Coeff of Yenny 15.1 H, Plt Count 203, MPV 12.3 H 06/09/22 20:55: Blood Type A POSITIVE, Antibody Screen NEGATIVE 06/09/22 20:55: Crossmatch See Detail 06/09/22 22:30: WBC 13.5 H, RBC 2.84 L, Hgb 9.0 L, Hct 27.3 L, MCV 96.1, MCH 31.7, MCHC 33.0, RDW Std Deviation 52.6 H, RDW Coeff of Yenny 15.2 H, Plt Count 193, MPV 11.4, Neut % (Auto) Not Reportable, Absolute Neuts (auto) 8.4 H, Absolute Lymphs (auto) 3.77, Total Counted 100, Neutrophils % (Manual) 59, Band Neutrophils % 3, Lymphocytes % (Manual) 28, Monocytes % (Manual) 7, Metamyelocytes % 1, Myelocytes % 2 H, Nucleated RBCs/100 WBC 1, Diff Path Review May foll, Platelet Estimate ADEQUATE, RBC Morphology N CHROM, Hypochromasia RARE, Anisocytosis RARE, Macrocytosis RARE 06/09/22 22:30: PT 13.7, INR 1.1, APTT 28.7 06/10/22 06:25: WBC 20.2 H, RBC 2.67 L, Hgb 8.2 L, Hct 25.2 L, MCV 94.4, MCH 30.7, MCHC 32.5, RDW Std Deviation 52.5 H, RDW Coeff of Yenny 15.2 H, Plt Count 140 L, MPV 11.0 Micro: Microbiology 06/09/22 20:20 Nasal Secretion SARS-CoV-2 Antigen (Rapid) - Final ROS Constitutional Constitutional: Reports systems reviewed and no addt'l complaints, except as documented Cardiovascular Cardiovascular: Denies chest pain, dizziness, dyspnea or irregular heart rhythm Respiratory/Chest Respiratory/Chest: Denies cough, pain on inspiration or shortness of breath at rest Gastrointestinal Gastrointestinal: Denies abdominal pain, nausea or vomiting Genitourinary Genitourinary: Denies burning urination Musculoskeletal Musculoskeletal: Denies muscle cramps, muscle spasms or muscle weakness Neurologic Neurologic: Denies confusion, dizziness, headache(s) or lack of coordination Psychiatric Psychiatric: Denies anxiety, behavioral changes or depression Physical Exam HEENT normocephalic Resp normal respiratory effort and normal air movement GI soft to palpation, non-tender and non-distended Rectal Exam: other Other Details: Incision is clean, dry, and intact no CVA tenderness Extremity normal to inspection General Extremity: edema bilateral (trace ) Assessment & Plan (1) Pre-eclampsia: PLAN: s/p LTCS PPD # 1- pp hemorrhage secondary to accreta on the lower uterine segment and small broad ligament hematoma. Continue to hold toradol. rpt cbc tomorrow -pre- with severe features. bp's stable ok to hold magnesium for now. 1. routine post care 2. breast feeding- support given 3. rh positive 4. rubella immune (2) Anemia: COMMENT: add Fe (3) Placenta previa antepartum in second trimester: COMMENT: FU at 28 weeks, pelvic rest US 04/20/22: not resolved, plan csection for 36-37 wks. now low lying at 1 cm but MFM recommending section. (4) Asthma affecting , antepartum: COMMENT: controlled mild intermittent, albuterol (5) Supervision of high risk , antepartum: COMMENT: PRR FOZIA:07/11/22 shazia Peña Spouse: Canelo (6) : QUALIFIERS: Weeks of gestation: 35 weeks Qualified Code(s): Z3A.35 - 35 weeks gestation of COMMENT: NIPT LR- Negative carrier patient and FOB at I. Anatomy US normal (7) Conceived by in vitro fertilization: COMMENT: [facility]. Oral estradiol and progesterone inj until 12/13 echo 22-24 wk-scheduled with MFM, 03/15 nl echo
[2022-06-10] MEDS: Ibuprofen 600 MG Tablet PO ×2 (12:35→18:18)
[2022-06-10] MEDS: 0.9% Saline Lock 10 ML Syringe IV (21:25)
[2022-06-11] VITALS (216 sets, daily range): BP systolic 77–162; BP diastolic 40–101; PULSE 59–130; RESP 14–18; TEMP 36.1–37.3; O2SAT 87–100; BMI 23.9
[2022-06-11] MEDS: Ibuprofen 600 MG Tablet PO ×4 (00:25→22:42)
--- NOTE | 2022-06-11 02:38 | NURSING ---
pt up to the bathroom returned to bed. Pt visibly tremoring. denies headache or visual disturbances. denies epigastric pain. Bilateral bicep reflexes are +3. Bilateral patellar reflexes are +4. BP 158/86. Dr. Beltran notified of above. new order for IV demerol.
[2022-06-11] MEDS: Acetaminophen 500 MG Tablet 1000 MG PO ×4 (02:57→21:04)
[2022-06-11] MEDS: 0.9% Saline Lock 10 ML Syringe IV (03:01)
[2022-06-11] MEDS: Magnesium Sulfate 4gm/100mL 4 GM/100 ML IV.SOLN. IV (03:43)
[2022-06-11] MEDS: NIFEdipine 30 MG Tablet PO (03:52)
[2022-06-11 04:08] LABS: Absolute Lymphocyte Count 3.12 X10^3/uL (0.83-4.51); Absolute Neutrophil Count 23.6 X10^3/uL (2.0-7.7); Basophil# 0.06 X10^3/uL; Basophil% 0.2 % (0-1); Eosinophil# 0.03 X10^3/uL; Eosinophils% 0.1 % (0-5); Hematocrit 26.6 % (37-47); Hemoglobin 8.7 g/dL (12.0-15.0); Lymphocyte # 3.12 X10^3/ul (0.83-4.51); Lymphocyte % 10.6 % (19-41); Mean Corp Hgb Conc 32.7 g/dL (32-36); Mean Corpuscular Hgb 30.6 pg (27.0-32.0); Mean Corpuscular Volume 93.7 fL (81-99); Mean Platelet Vol. 11.2 fl (6.2-12.0); Monocyte# 2.11 X10^3/uL; Monocyte% 7.2 % (0-10); NRBC Flagged by Analyzer 1.4 % (0-5); Neutrophil # 23.59 X10^3/uL (2.7-7.7); Neutrophil % 80.3 % (47-70); POSITIVE DIFFERENTIAL YES; Platelet Count 123 K/mm3 (150-450); RBC Distribution Width SD 51.5 fl (35.1-43.9); Red Blood Count 2.84 M/mm3 (4.2-5.4); White Blood Count 29.4 K/mm3 (4.4-11.0)
[2022-06-11 04:09] LABS: Differential Indicated SCAN CRITERIA MET
[2022-06-11] MEDS: Magnesium Sulfate 20 GM/500 ML BAG IV ×3 (04:11→22:42)
[2022-06-11 04:26] LABS: AST(SGOT) 114 U/L (15-37); Alanine Aminotransfer ALT/SGPT 32 U/L (13-56); Creatinine, Serum 0.66 mg/dL (0.55-1.02); EST Glomerular Filtration Rate 114 mL/min (>60); Est Glom Filt Rate - Afr Amer 138 mL/min (>60); Estimated Creatinine Clearance 106.85 ml/min; Uric Acid 4.2 mg/dL (2.6-6.0)
[2022-06-11 04:53] LABS: Differential Comment SCANNED
--- NOTE | 2022-06-11 05:27 | US_ITS ---
EXAM: US ABDOMEN LIMITED, RIGHT UPPER QUADRANT CLINICAL INDICATION: HELLP syndrome: provider would like RUQ US TECHNIQUE: Real-time ultrasound of the right upper quadrant with image documentation. This report was created using [employer] report [employer] technology. COMPARISON: None. FINDINGS: LIVER: Main portal vein is patent with hepatopedal direction of blood flow. There is normal echotexture. No intrahepatic biliary ductal dilation. GALLBLADDER: No gallstones or wall thickening. Pericholecystic fluid versus small volume ascites. Sonographic Belle''s sign is absent. Gallbladder sludge. COMMON BILE DUCT: Common bile duct is normal. The proximal common bile duct is within normal limits for the patient''s age. PANCREAS: Unremarkable as visualized. No focal abnormality is demonstrated in the pancreas. No pancreatic ductal dilatation. RIGHT KIDNEY: Mild right hydronephrosis. No other renal abnormalities. No shadowing calculus. No focal lesion or perinephric collection is demonstrated. FREE FLUID: Small free fluid adjacent to the right lobe of liver. Small volume ascites suggested. PLEURAL SPACE: Suggestion of a right pleural effusion. US/Abdomen Limited IMPRESSION: 1. No convincing evidence for acute cholecystitis no sonographic Belle''s sign noted to be absent. 2. Pericholecystic fluid versus small volume ascites. 3. Mild right hydronephrosis. This can be further investigated with CT. Electronically Signed: Ward Benoit MD at 17:03 EDT ,
--- NOTE | 2022-06-11 05:47 | NURSING ---
0515 tyson cath with urine-meter placed under sterile technique. immediate clear yellow urine return noted. pt tolerated well. pt then moved to room 12 via bed to be closer to nurses station for closer monitoring. pulse ox and scd's maintained
[2022-06-11 06:26] LABS: Ammonia < 10.0 umol/L (11-32)
[2022-06-11 06:35] LABS: Bacteria 0 SEEN /hpf (None Seen); Mucous, Urine 0 SEEN /hpf (<or=2+); Red Blood Cells-Urine 0 SEEN /hpf (0-5); Squamous Epithelial Cells - UA 0 SEEN /hpf (5-10); White Blood Cells 0 SEEN /hpf (0-5)
[2022-06-11 06:44] LABS: Amylase 27 U/L (25-115); Bilirubin, Direct 0.12 mg/dL (0.00-0.30); Lipase 111 U/L (73-393)
[2022-06-11 06:45] LABS: Prothrombin Time (Protime)PT. 12.9 SECONDS (11.7-14.9)
[2022-06-11 06:46] LABS: Partial Thromboplast Time 34.1 Seconds (24.1-36.2)
--- NOTE | 2022-06-11 07:03 | NURSING ---
Pt complains of blurry vision. Denies Headache.
[2022-06-11 07:11] LABS: Color, Urine Straw (Yellow); Glucose, Dipstick Normal (Normal); Ketone-Dipstick Negative (Negative); Leukocyte Esterase-Dipstick Negative /ul (Negative); Nitrite-Dipstick Negative (Negative); Occult Blood-Urine Negative /ul (Negative); Protein-Dipstick Negative (Negative); Urine Bilirubin Dipstick Negative (Negative); Urine Clarity Clear (Clear); Urine Urobilinogen Normal (Normal); Urine pH 6.5 (5.0 - 8.0)
[2022-06-11 08:52] LABS: AST(SGOT) 20 U/L (15-37); Alanine Aminotransfer ALT/SGPT 14 U/L (13-56); Creatinine, Serum 0.85 mg/dL (0.55-1.02); EST Glomerular Filtration Rate 86 mL/min (>60); Est Glom Filt Rate - Afr Amer 104 mL/min (>60); Estimated Creatinine Clearance 82.97 ml/min; Uric Acid 5.6 mg/dL (2.6-6.0)
[2022-06-11] MEDS: Lactated Ringers 1,000 ML 15 ML IV (08:56)
[2022-06-11 09:20] LABS: Bedside Glucose 98 mg/dL (74-106)
[2022-06-11] MEDS: Senna/Docusate Sodium 1 Tablet PO (09:25)
[2022-06-11 10:27] LABS: Absolute Lymphocyte Count 3.23 X10^3/uL (0.83-4.51); Absolute Neutrophil Count 23.4 X10^3/uL (2.0-7.7); Basophil# 0.08 X10^3/uL; Basophil% 0.3 % (0-1); Eosinophil# 0.03 X10^3/uL; Eosinophils% 0.1 % (0-5); Hemoglobin 9.4 g/dL (12.0-15.0); Lymphocyte # 3.23 X10^3/ul (0.83-4.51); Mean Corp Hgb Conc 33.6 g/dL (32-36); Mean Corpuscular Hgb 31.5 pg (27.0-32.0); Mean Platelet Vol. 11.1 fl (6.2-12.0); Monocyte# 1.72 X10^3/uL; Monocyte% 5.9 % (0-10); NRBC Flagged by Analyzer 0.8 % (0-5); Neutrophil # 23.37 X10^3/uL (2.7-7.7); Neutrophil % 79.7 % (47-70); POSITIVE DIFFERENTIAL YES; Platelet Count 139 K/mm3 (150-450); RBC Distribution Width CV 15.1 % (11.6-14.6); RBC Distribution Width SD 51.4 fl (35.1-43.9); Red Blood Count 2.98 M/mm3 (4.2-5.4); White Blood Count 29.3 K/mm3 (4.4-11.0)
[2022-06-11 10:30] LABS: Differential Indicated SCAN CRITERIA MET
[2022-06-11 10:45] LABS: Differential Comment SCANNED
--- NOTE | 2022-06-11 11:13 | PN.OBGYN_ITS ---
Subjective Subjective pt is sitting up in bed at an incline. Tyson catheter is in place and she has been moved from room 4 down the david to room 12 for adequate monitoring since the diagnosis of HELLP syndrome has been made earlier this am. There is an elevation in the WBC as was discussed with the patient, without obvious source of infection. Due to this, I have discussed with the patient that leukocytotis + HELLP syndrome could also mean there is an aspect of Acute Fatty Liver of that we need to look into closely. The patient admits to some visual changes that started since yesterday, no epigastric pain, nausea or vomiting. Objective Data Objective Data Vital Signs: Vital Signs Temp Pulse Resp BP Pulse Ox O2 Del Method 97.4 F L 110 H 16 104/58 L 99 Room Air 06/11/22 11:00 06/11/22 11:11 06/11/22 11:00 06/11/22 11:00 06/11/22 11:11 06/11/22 11:00 Oxygen Delivery Method Room Air Weight: 142 lb 6.4 oz Body Mass Index (BMI) 25.2 Intake & Output: Intake and Output for Last 24 Hours 06/09/22 06/10/22 06/11/22 23:59 23:59 23:59 Intake Total 162.5 / 162.5 3920 / 3920 700 / 700 Output Total 500 / 500 2700 / 2700 2730 / 2730 Balance -337.5 / -337.5 1220 / 1220 -2030 / -2030 Lab / Micro Data Result Diagrams: 06/11/22 10:00 06/11/22 10:00 Labs: Laboratory Results - last 24 hr 06/09/22 19:40: Creatinine 0.85, Estim Creat Clear Calc 82.97, Est GFR (MDRD) Af Amer 104, Est GFR (MDRD) Non-Af 86, Uric Acid 5.6, AST 20, ALT 14 06/11/22 03:53: WBC 29.4 H, RBC 2.84 L, Hgb 8.7 L, Hct 26.6 L, MCV 93.7, MCH 30.6, MCHC 32.7, RDW Std Deviation 51.5 H, RDW Coeff of Yenny 15.0 H, Plt Count 123 L, MPV 11.2, Immature Gran % (Auto) 1.600 H, Neut % (Auto) 80.3 H, Lymph % (Auto) 10.6 L, [place] % (Auto) 7.2, Eos % (Auto) 0.1, Baso % (Auto) 0.2, Absolute Neuts (auto) 23.6 H, Absolute Lymphs (auto) 3.12, Nucleated RBC % 1.4, Differential Comment SCANNED, Diff Path Review December foll 06/11/22 03:53: Creatinine 0.66, Estim Creat Clear Calc 106.85, Est GFR (MDRD) Af Amer 138, Est GFR (MDRD) Non-Af 114, Uric Acid 4.2, AST 114 H, ALT 32 06/11/22 05:30: Urine Color Straw, Urine Clarity Clear, Urine pH 6.5, Ur Specific [place] 1.010, Urine Protein Negative, Urine Glucose (UA) Normal, Urine Ketones Negative, Urine Occult Blood Negative, Urine Nitrite Negative, Urine Bilirubin Negative, Urine Urobilinogen Normal, Ur Leukocyte Esterase Negative, Urine RBC 0 SEEN, Urine WBC 0 SEEN, Ur Squamous Epith Cells 0 SEEN, Urine Bacteria 0 SEEN, Urine Mucus 0 SEEN 06/11/22 05:42: PT 12.9, INR 1.0, APTT 34.1 06/11/22 05:42: Total Bilirubin 0.60, Direct Bilirubin 0.12, Indirect Bilirubin 0.50, Amylase 27, Lipase 111 06/11/22 05:42: Ammonia < 10.0 L 06/11/22 08:55: POC Glucose 98 06/11/22 10:00: WBC 29.3 H, RBC 2.98 L, Hgb 9.4 L, Hct 28.0 L, MCV 94.0, MCH 31.5, MCHC 33.6, RDW Std Deviation 51.4 H, RDW Coeff of Yenny 15.1 H, Plt Count 139 L, MPV 11.1, Immature Gran % (Auto) 3.000 H, Neut % (Auto) 79.7 H, Lymph % (Auto) 11.0 L, [place] % (Auto) 5.9, Eos % (Auto) 0.1, Baso % (Auto) 0.3, Absolute Neuts (auto) 23.4 H, Absolute Lymphs (auto) 3.23, Nucleated RBC % 0.8, Differential Comment SCANNED, Diff Path Review December foll Micro: Microbiology 06/09/22 20:20 Nasal Secretion SARS-CoV-2 Antigen (Rapid) - Final ROS Constitutional Constitutional: Denies chills, fatigue, fever(s), poor appetite or weakness Eyes Eyes: Denies blurry vision, change in vision, seeing flashes or spots in vision ENT HEENT: Denies dizziness, headache(s), loss taste/smell or sore throat Cardiovascular Cardiovascular: Denies chest pain, dizziness, dyspnea, irregular heart rhythm, palpitations or rapid heart rate Respiratory/Chest Respiratory/Chest: Denies chest tightness, cough, dyspnea or breast pain Gastrointestinal Gastrointestinal: Denies abdominal pain, constipation or vomiting Genitourinary Genitourinary: Denies dysuria or flank pain Musculoskeletal Musculoskeletal: Denies difficulty walking, joint pain, limited range of motion or numbness Neurologic Neurologic: Denies abnormal movements, abnormal speech, dizziness, numbness, seizure-like activity or syncope Psychiatric Psychiatric: Denies anxiety, behavioral changes, change in appetite, confusion, depression or suicidal thoughts Physical Exam Const alert, oriented x3 and no apparent distress General Appearance: cooperative and comfortable Resp normal respiratory effort Cardio regular rate GI normal to inspection, nondistended, normoactive bowel sounds GI Narrative: uterus is firm below umbilicus Palpation: soft Back/Spine no CVA tenderness and thoraco-lumbar ROM normal Extremity normal to inspection, no clubbing, cyanosis or edema, no calf tenderness and no pedal edema Psych mental status grossly normal, thought process normal, cooperative, affect normal, speech normal, activity/motor behavior normal, denies homicidal ideation and denies suicidal ideation Assessment & Plan (1) HELLP syndrome: PLAN: ruling out AFLP- ammonia level normal, glucose normal, LFT's are trending up, no signs of jaundice or RUQ pain. Amylase and Lipase are normaml. The only factor at this time is the elevated WBC count. Urine culture is pending. she is afebrile. 6 hrs after first elevation the WBC count is the same -will continue serial laboratory monitoring -continue magnesium -continue procardia 30 xl daily -continue tyson cath and monitoring urine output regularly (at this point patient is diuresing well) -platelets ordered and are on hold. plts went from 140's down to 120's then back up to 139. will continue to hold the platelets. Blood bank informed us that we have until 06/14 to use them (2) Pre-eclampsia: PLAN: blood pressures stable and trending down continue magensium sulfate (3) Status post section: COMMENT: 06/10/22- CHARLETTE vazquez boy Marc accreta and pp hemorrhage. PLAN: hg back up to 9.2 and stable
[2022-06-11 11:20] LABS: Bedside Glucose 88 mg/dL (74-106)
[2022-06-11 12:11] LABS: Pathologist Review Reviewed
[2022-06-11 12:21] LABS: Pathologist Review Reviewed
[2022-06-11 13:11] LABS: ALB/GLOB Ratio 0.5 RATIO (0.9-2.4); AST(SGOT) 105 U/L (15-37); Alanine Aminotransfer ALT/SGPT 35 U/L (13-56); Albumin, Serum 1.8 g/dL (3.2-5.0); Alkaline Phosphatase 90 U/L (45-117); Anion Gap 7 (5-15); BUN 14 mg/dL (7-18); BUN/Creat Ratio 18.3 RATIO (10-20); Calcium,Total 7.4 mg/dL (8.5-10.1); Chloride 104 mmol/L (98-107); Creatinine, Serum 0.76 mg/dL (0.55-1.02); EST Glomerular Filtration Rate 97 mL/min (>60); Est Glom Filt Rate - Afr Amer 117 mL/min (>60); Estimated Creatinine Clearance 92.79 ml/min; Globulin 3.5 g/dL (2.2-4.2); Glucose 96 mg/dL (74-106); Magnesium 5.6 mg/dL (1.6-2.6); Potassium 4.4 mmol/L (3.5-5.1); Protein, Total 5.3 g/dL (6.4-8.2); Sodium Level 135 mmol/L (136-145)
[2022-06-11 16:31] LABS: Hematocrit 27.9 % (37-47); Mean Corp Hgb Conc 32.3 g/dL (32-36); Mean Corpuscular Hgb 30.5 pg (27.0-32.0); Mean Corpuscular Volume 94.6 fL (81-99); Mean Platelet Vol. 10.9 fl (6.2-12.0); Platelet Count 164 K/mm3 (150-450); RBC Distribution Width CV 15.2 % (11.6-14.6); RBC Distribution Width SD 52.4 fl (35.1-43.9); Red Blood Count 2.95 M/mm3 (4.2-5.4)
[2022-06-11 16:40] LABS: International Normalized Ratio 1.1; Prothrombin Time (Protime)PT. 13.9 SECONDS (11.7-14.9)
[2022-06-11 17:02] LABS: ALB/GLOB Ratio 0.5 RATIO (0.9-2.4); AST(SGOT) 87 U/L (15-37); Alanine Aminotransfer ALT/SGPT 30 U/L (13-56); Albumin, Serum 1.7 g/dL (3.2-5.0); Alkaline Phosphatase 84 U/L (45-117); Anion Gap 10 (5-15); BUN 12 mg/dL (7-18); BUN/Creat Ratio 19.5 RATIO (10-20); Calcium,Total 7.9 mg/dL (8.5-10.1); Chloride 91 mmol/L (98-107); Creatinine, Serum 0.61 mg/dL (0.55-1.02); EST Glomerular Filtration Rate 124 mL/min (>60); Est Glom Filt Rate - Afr Amer 150 mL/min (>60); Estimated Creatinine Clearance 115.61 ml/min; Globulin 3.5 g/dL (2.2-4.2); Glucose 106 mg/dL (74-106); Potassium 4.1 mmol/L (3.5-5.1); Protein, Total 5.2 g/dL (6.4-8.2); Sodium Level 125 mmol/L (136-145); Uric Acid 3.5 mg/dL (2.6-6.0)
[2022-06-11 17:31] LABS: Partial Thromboplast Time > 200.0 Seconds (24.1-36.2)
--- NOTE | 2022-06-11 18:47 | PN.OBGYN_ITS ---
Subjective Subjective patient is laying in bed and states that just recently she has developed some shortness of breath. The nurses are working on drawing her blood currently. She denies chest pain, abdominal pain, or uterine cramping. She denies heavy vaginal bleeding Objective Data Objective Data Vital Signs: Vital Signs Temp Pulse Resp BP Pulse Ox O2 Del Method 99.1 F 124 H 16 127/82 H 100 Room Air 06/11/22 17:00 06/11/22 18:46 06/11/22 17:00 06/11/22 18:46 06/11/22 18:46 06/11/22 17:00 Oxygen Delivery Method Room Air Weight: 142 lb 6.4 oz Body Mass Index (BMI) 25.2 Intake & Output: Intake and Output for Last 24 Hours 06/09/22 06/10/22 06/11/22 23:59 23:59 23:59 Intake Total 162.5 / 162.5 3920 / 3920 1587.5 / 1587.5 Output Total 500 / 500 2700 / 2700 4670 / 4670 Balance -337.5 / -337.5 1220 / 1220 -3082.5 / -3082.5 Lab / Micro Data Result Diagrams: 06/11/22 16:20 06/11/22 16:20 Labs: Laboratory Results - last 24 hr 06/09/22 19:40: Creatinine 0.85, Estim Creat Clear Calc 82.97, Est GFR (MDRD) Af Amer 104, Est GFR (MDRD) Non-Af 86, Uric Acid 5.6, AST 20, ALT 14 06/09/22 22:30: Diff Path Review Reviewed 06/11/22 03:53: WBC 29.4 H, RBC 2.84 L, Hgb 8.7 L, Hct 26.6 L, MCV 93.7, MCH 30.6, MCHC 32.7, RDW Std Deviation 51.5 H, RDW Coeff of Yenny 15.0 H, Plt Count 123 L, MPV 11.2, Immature Gran % (Auto) 1.600 H, Neut % (Auto) 80.3 H, Lymph % (Auto) 10.6 L, [place] % (Auto) 7.2, Eos % (Auto) 0.1, Baso % (Auto) 0.2, Absolute Neuts (auto) 23.6 H, Absolute Lymphs (auto) 3.12, Nucleated RBC % 1.4, Differential Comment SCANNED, Diff Path Review Reviewed 06/11/22 03:53: Creatinine 0.66, Estim Creat Clear Calc 106.85, Est GFR (MDRD) Af Amer 138, Est GFR (MDRD) Non-Af 114, Uric Acid 4.2, AST 114 H, ALT 32 06/11/22 05:30: Urine Color Straw, Urine Clarity Clear, Urine pH 6.5, Ur Specific [place] 1.010, Urine Protein Negative, Urine Glucose (UA) Normal, Urine Ketones Negative, Urine Occult Blood Negative, Urine Nitrite Negative, Urine Bilirubin Negative, Urine Urobilinogen Normal, Ur Leukocyte Esterase Negative, Urine RBC 0 SEEN, Urine WBC 0 SEEN, Ur Squamous Epith Cells 0 SEEN, Urine Bacteria 0 SEEN, Urine Mucus 0 SEEN 06/11/22 05:42: PT 12.9, INR 1.0, APTT 34.1 06/11/22 05:42: Total Bilirubin 0.60, Direct Bilirubin 0.12, Indirect Bilirubin 0.50, Amylase 27, Lipase 111 06/11/22 05:42: Ammonia < 10.0 L 06/11/22 08:55: POC Glucose 98 06/11/22 10:00: Sodium 135 L, Potassium 4.4, Chloride 104, Carbon Dioxide 24.0, Anion Gap 7, BUN 14, Creatinine 0.76, Estim Creat Clear Calc 92.79, Est GFR (MDR D) Af Amer 117, Est GFR (MDRD) Non-Af 97, BUN/Creatinine Ratio 18.3, Glucose 96, Calcium 7.4 L, Magnesium 5.6 H*, Total Bilirubin 0.60, AST 105 H, ALT 35, Alkaline Phosphatase 90, Total Protein 5.3 L, Albumin 1.8 L, Globulin 3.5, Albumin/Globulin Ratio 0.5 L 06/11/22 10:00: WBC 29.3 H, RBC 2.98 L, Hgb 9.4 L, Hct 28.0 L, MCV 94.0, MCH 31.5, MCHC 33.6, RDW Std Deviation 51.4 H, RDW Coeff of Yenny 15.1 H, Plt Count 139 L, MPV 11.1, Immature Gran % (Auto) 3.000 H, Neut % (Auto) 79.7 H, Lymph % (Auto) 11.0 L, [place] % (Auto) 5.9, Eos % (Auto) 0.1, Baso % (Auto) 0.3, Absolute Neuts (auto) 23.4 H, Absolute Lymphs (auto) 3.23, Nucleated RBC % 0.8, Differential Comment SCANNED, Diff Path Review December06/11/22 10:59: POC Glucose 88 06/11/22 16:20: WBC 28.0 H, RBC 2.95 L, Hgb 9.0 L, Hct 27.9 L, MCV 94.6, MCH 30.5, MCHC 32.3, RDW Std Deviation 52.4 H, RDW Coeff of Yenny 15.2 H, Plt Count 164, MPV 10.9 06/11/22 16:20: PT 13.9, INR 1.1, APTT > 200.0 H* 06/11/22 16:20: Sodium 125 L, Potassium 4.1, Chloride 91 L, Carbon Dioxide 24.0, Anion Gap 10, BUN 12, Creatinine 0.61, Estim Creat Clear Calc 115.61, Est GFR (MDRD) Af Amer 150, Est GFR (MDRD) Non-Af 124, BUN/Creatinine Ratio 19.5, Gluc ose 106, Uric Acid 3.5, Calcium 7.9 L, Total Bilirubin 0.80, AST 87 H, ALT 30, Alkaline Phosphatase 84, Total Protein 5.2 L, Albumin 1.7 L, Globulin 3.5, Albumin/Globulin Ratio 0.5 L Micro: Microbiology 06/09/22 20:20 Nasal Secretion SARS-CoV-2 Antigen (Rapid) - Final Radiography Diagnostic Testing: Radiology Impression Abdomen Ultrasound 06/11/22 05:27 IMPRESSION: 1. No convincing evidence for acute cholecystitis no sonographic Belle''s sign noted to be absent. 2. Pericholecystic fluid versus small volume ascites. 3. Mild right hydronephrosis. This can be further investigated with CT. Electronically Signed: Ward Benoit MD at 17:03 EDT , ROS Constitutional Constitutional: Reports systems reviewed and no addt'l complaints, except as documented Cardiovascular Cardiovascular: Denies chest pain, dizziness or irregular heart rhythm Respiratory/Chest Respiratory/Chest: Denies cough or pain on inspiration Gastrointestinal Gastrointestinal: Denies abdominal pain, nausea or vomiting Musculoskeletal Musculoskeletal: Denies muscle cramps, muscle spasms or muscle weakness Neurologic Neurologic: Denies confusion, dizziness, headache(s) or lack of coordination Psychiatric Psychiatric: Denies anxiety, behavioral changes or depression Physical Exam Const alert, oriented x3 and no apparent distress HEENT normocephalic Chest Chest: abnormal inspection of the chest and symmetrical chest wall rise; Negative for tenderness Nipple/Areola: nipples/areola normal Resp normal respiratory effort, normal air movement and clear to auscultation bilaterally Effort and Inspection: able to speak in complete sentences Cardio regular rhythm GI soft to palpation and non-tender GI Narrative: mildly distended abdomen in midline. incision is clean, dry, intact Rectal Exam: other Other Details: Incision is clean, dry, and intact no CVA tenderness Extremity normal to inspection General Extremity: edema bilateral (trace ) lower extremity Details: moderate Assessment & Plan (1) Status post section: COMMENT: 06/09/22- JV female -Mariana accreta and pp hemorrhage. (2) HELLP syndrome: COMMENT: heading into DIC based on PTT of >200 PLAN: discussed with Dr. Montgomery, plan to transfer patient to ICU reordering coags, fibrinogen, LD, and D-dimer (3) Pre-eclampsia:
--- NOTE | 2022-06-11 19:02 | NUR.TO.PHY ---
1700 report of labs called to Dr. Santana. Repeat labs ordered and she will be in to see pt.
[2022-06-11 19:03] LABS: Partial Thromboplast Time 29.6 Seconds (24.1-36.2); Prothrombin Time (Protime)PT. 12.9 SECONDS (11.7-14.9)
--- NOTE | 2022-06-11 19:03 | NURSING ---
1808Return call from Dr. Santana. Plan is to transfer pt to ICU. Will repeat labs. She will be in to talk with pt.
[2022-06-11 19:04] LABS: Fibrinogen 289 mg/dl (203-444)
--- NOTE | 2022-06-11 19:05 | NURSING ---
1830 Dr. Santana in to see pt. Plan discussed and pt agreeable to transfer to ICU. Assessment per Dr. Santana.
--- NOTE | 2022-06-11 19:05 | NURSING ---
1900- Breast pump parts gathered for when pt. is transferred. Note written out for pt's nurse on the floor to know she needs to be pumping every 2-3 hours for at least 15-20 minutes. RN IBCLC to see pt on the floor at least once before my shift is over. Pump cleaning supplies also gathered and placed in pt. belonging bag. Discussion had with pt about feeding plan for and to ensure there are no questions or concerns at this time. Pt. does not have any questions. Will continue to provide education and support to family. FOB does not have any questions at this time either.
[2022-06-11 19:07] LABS: LDH 404 U/L (84-246)
--- NOTE | 2022-06-11 20:36 | NURSING ---
2015- RN IBCLC in pt's ICU room to assist with putting breast pump together. Reviewed with pt. how to put pump pieces together in case there is a time that isn't available or isn't here to go up. Spoons provided for MOB to collect her milk and a syringe and cap also given so that milk can be collected and sent back down to [facility] for to take with the next feeding. Wash basin and dish soap in pt room for pump cleaning. Pt's pump settings written on pt. white board for reference as well as the phone number and the hours an IBCLC will be here tonight. Will continue to provide encouragement and support. Pt. pumped for about 4 minutes while this RN IBCLC was in room, then stated she felt comfortable with finishing the pumping session and collecting the milk herself. Will call RN IBCLC back to room if any assistance is needed.
[2022-06-12] VITALS (20 sets, daily range): BP systolic 109–141; BP diastolic 67–99; PULSE 84–108; RESP 12–20; TEMP 36.4–37; O2SAT 97–100
[2022-06-12] MEDS: Acetaminophen 500 MG Tablet 1000 MG PO ×4 (02:02→21:14)
[2022-06-12 03:34] LABS: Hematocrit 27.4 % (37-47); Hemoglobin 9.4 g/dL (12.0-15.0); Mean Corp Hgb Conc 34.3 g/dL (32-36); Mean Corpuscular Hgb 32.1 pg (27.0-32.0); Mean Corpuscular Volume 93.5 fL (81-99); Mean Platelet Vol. 10.5 fl (6.2-12.0); Platelet Count 177 K/mm3 (150-450); RBC Distribution Width CV 15.5 % (11.6-14.6); RBC Distribution Width SD 52.9 fl (35.1-43.9); Red Blood Count 2.93 M/mm3 (4.2-5.4); White Blood Count 25.9 K/mm3 (4.4-11.0)
[2022-06-12 03:52] LABS: D-Dimer Quantitative (DVT/PE) 1.85 FEU/ug/m (0.27-0.49)
[2022-06-12 04:07] LABS: ALB/GLOB Ratio 0.5 RATIO (0.9-2.4); AST(SGOT) 76 U/L (15-37); Alanine Aminotransfer ALT/SGPT 32 U/L (13-56); Albumin, Serum 1.9 g/dL (3.2-5.0); Alkaline Phosphatase 98 U/L (45-117); Anion Gap 8 (5-15); BUN 14 mg/dL (7-18); BUN/Creat Ratio 19.4 RATIO (10-20); Calcium,Total 6.3 mg/dL (8.5-10.1); Chloride 100 mmol/L (98-107); Creatinine, Serum 0.72 mg/dL (0.55-1.02); EST Glomerular Filtration Rate 103 mL/min (>60); Est Glom Filt Rate - Afr Amer 125 mL/min (>60); Estimated Creatinine Clearance 97.95 ml/min; Globulin 3.8 g/dL (2.2-4.2); Glucose 121 mg/dL (74-106); International Normalized Ratio 0.9; LDH 413 U/L (84-246); Potassium 4.1 mmol/L (3.5-5.1); Protein, Total 5.7 g/dL (6.4-8.2); Sodium Level 134 mmol/L (136-145)
[2022-06-12 04:08] LABS: Fibrinogen 553 mg/dl (203-444); Partial Thromboplast Time 30.8 Seconds (24.1-36.2)
[2022-06-12] MEDS: Ibuprofen 600 MG Tablet PO ×3 (05:34→18:18)
--- NOTE | 2022-06-12 07:01 | EX.PCM.CONCC ---
Assessment & Plan Assessment/Plan (1) HELLP syndrome: (2) Pre-eclampsia: (3) DIC (disseminated intravascular coagulation): PLAN: Plan RECOMMENDATIONS: 1. Magnesium infusion per OB 2. Likely okay to transition to daily labs for DIC unless develops bleeding 3. Increase activity as tolerated 4. Likely okay to go back to OB for observation IMPRESSIONS: 1. HELLP syndrome/preeclampsia Defer to OB. Liver enzymes have been stable. Patient does not appear to be having significant complications at this time. Blood pressure is slightly up this morning, but Procardia was held this morning. Patient is on a magnesium infusion, but this was decreased this morning secondary to a magnesium level of 7. 2. Concern for DIC/acute blood loss anemia/placenta accreta Patient with significant blood loss at . Clinical suspicion as this is the etiology of elevated D-dimer and LDH. Patient's fibrinogen has elevated and coagulation studies remain normal. No active bleeding are noted. Given temporal relationship to , risk of DIC is lowering significantly. Likely okay to transition to daily labs with DIC labs only if patient develops signs or symptoms of clotting or bleeding. Patient would benefit from iron replacement given acute blood loss. Patient has been tachycardic with complaints of shortness of breath, but clinical suspicion is low for PE given the lack of DIC. If patient were to develop DIC or hypoxia, evaluation for PE would be appropriate. At this time, risk of dye load likely higher than probability of PE in my opinion. 3. Double vision Unclear etiology. May be secondary to preeclampsia versus elevated magnesium levels. Defer to OB on timing of cessation of magnesium. Patient does have reflexes at this time. No other focal neurologic deficits are appreciated. HPI Consult Data Date of Consult: 06/12/22 HPI Narrative Reason for Consultation: Concern for DIC HPI Narrative: GUCCI GOMEZ is a 26 F, with past medical history listed below, who presents to [facility] on 06/09/2022 at 35 weeks and 3 days secondary to visual changes and elevation of blood pressure. Patient had a known history of preeclampsia and a low-lying placenta and had received 2 doses of Celestone earlier in the week. Plan was to proceed with a primary upon admission. At , patient was noted to have a placenta accreta with approximately 1300 cc of acute blood loss. Patient reportedly tolerated the procedure well and was placed on iron and magnesium. On 06/11/2022, patient was moved rooms for closer observation after she had developed signs and symptoms of HELLP syndrome. There was a persistent elevation in WBC count and some concern for acute fatty liver of . Patient had labs frequently for monitoring. Last evening, patient had a PTT of over 200 and there was concern for the development of DIC. Patient had also reported some increased shortness of breath. Patient had been tachycardic throughout her hospitalization. Additional labs were ordered and the patient was transferred to the intensive care unit. Since being in the intensive care unit, patient has done relatively well. Patient reports decreased sleep and nasal stuffiness, but no active bleeding. Patient has had a Vinson placed with significant urine output and feels that her abdominal distention is much improved. Patient states her pain is controlled at this time. Patient is complaining of double vision. No hematuria, epistaxis, melena or hematochezia has been reported. Patient has not had a bowel movement. Patient is not reporting any cramping. Patient's mother is at the bedside and she is concerned about her lack of sleep, but otherwise feels that she is doing relatively well. Patient is asking if it is possible to go back to the maternity [facility] to spend time with her daughter. Review of systems otherwise negative from a constitutional, HEENT, respiratory, cardiovascular, GI, genitourinary, musculoskeletal, skin, neurologic, psychiatric and hematologic system unless stated above. COUNT INCLUDES THE [facility] Medical History Anemia Asthma Left breast mass Traumatic brain injury Medical History no medical history Home Medications prenat.vits,andrea,[id number] 1 tab PO DAILY 10/21/18 [History Last Taken 06/07/22 08:00] albuterol 90 mcg/actuation aerosol inhaler 90 mcg inhalation PRN PRN asthma 06/06/22 [History Last Taken 06/05/22 08:00] ferrous sulfate 325 mg (65 mg iron) tablet (iron) 325 mg PO DAILY anemia 06/06/22 [History Last Taken 06/06/22 20:00] Allergy/AdvReac Type Severity Reaction Status Date / Time No Known Allergies Allergy Verified 06/08/22 15:16 Family History Grandfather Colon cancer Cancer Mother Lupus Other PUPP (pruritic urticarial papules and plaques of ) Family History no significant family his Surgical History S/P eye surgery Status post left foot surgery Status post right foot surgery [place] teeth extracted Surgical History no surgical history Social History adopted: No household members: spouse current occupational status: employed current occupation: [employer] current occupational exposures/hazards: No pets and animals: Yes pets and animals: cat(s) and dog(s) Smoking Status: Never smoker alcohol intake: current details: occasionally/none while substance use type: does not use caffeine: No what type of physical activity do you participate in: none seatbelt use: always do you feel safe at home: Yes additional social history: - [employer] Patient works in [employer] at [employer] ROS ROS Narrative See HPI Physical Exam Const alert, oriented x3 and no apparent distress General Appearance: cooperative HEENT normocephalic, head/scalp atraumatic and moist oral mucous membranes Eyes PERRL, EOMs intact bilaterally, conjunctivae normal and no scleral icterus Neck full ROM and no lymphadenopathy Chest Chest: symmetrical chest wall rise; Negative for tenderness Resp normal respiratory effort, normal air movement and clear to auscultation bilaterally Effort and Inspection: able to speak in complete sentences Auscultation: Negative for rales, rhonchi or wheezes Cardio regular rhythm, S1 normal heart sound, S2 normal heart sound, no murmurs, no rub and no gallops Rate: tachycardic GI soft to palpation and non-tender no CVA tenderness Extremity normal to inspection General Extremity: edema bilateral (trace ) lower extremity Details: moderate Skin no rashes or lesions noted Neuro oriented x3 and moves all extremities Psych cooperative and affect normal Lab / Micro Data Attestation: I reviewed the patient's lab results. Result Diagrams: 06/12/22 03:13 06/12/22 03:13 Labs: Laboratory Results - last 24 hr 06/09/22 19:40: Creatinine 0.85, Estim Creat Clear Calc 82.97, Est GFR (MDRD) Af Amer 104, Est GFR (MDRD) Non-Af 86, Uric Acid 5.6, AST 20, ALT 14 06/09/22 22:30: Diff Path Review Reviewed 06/11/22 03:53: Diff Path Review Reviewed 06/11/22 05:30: Urine Color Straw, Urine Clarity Clear, Urine pH 6.5, Ur Specific [place] 1.010, Urine Protein Negative, Urine Glucose (UA) Normal, Urine Ketones Negative, Urine Occult Blood Negative, Urine Nitrite Negative, Urine Bilirubin Negative, Urine Urobilinogen Normal, Ur Leukocyte Esterase Negative, Urine RBC 0 SEEN, Urine WBC 0 SEEN, Ur Squamous Epith Cells 0 SEEN, Urine Bacteria 0 SEEN, Urine Mucus 0 SEEN 06/11/22 08:55: POC Glucose 98 06/11/22 10:00: Sodium 135 L, Potassium 4.4, Chloride 104, Carbon Dioxide 24.0, Anion Gap 7, BUN 14, Creatinine 0.76, Estim Creat Clear Calc 92.79, Est GFR (MDRD) Af Amer 117, Est GFR (MDRD) Non-Af 97, BUN/Creatinine Ratio 18.3, Glucose 96, Calcium 7.4 L, Magnesium 5.6 H*, Total Bilirubin 0.60, AST 105 H, ALT 35, Alkaline Phosphatase 90, Total Protein 5.3 L, Albumin 1.8 L, Globulin 3.5, Albumin/Globulin Ratio 0.5 L 06/11/22 10:00: WBC 29.3 H, RBC 2.98 L, Hgb 9.4 L, Hct 28.0 L, MCV 94.0, MCH 31.5, MCHC 33.6, RDW Std Deviation 51.4 H, RDW Coeff of Yenny 15.1 H, Plt Count 139 L, MPV 11.1, Immature Gran % (Auto) 3.000 H, Neut % (Auto) 79.7 H, Lymph % (Auto) 11.0 L, [place] % (Auto) 5.9, Eos % (Auto) 0.1, Baso % (Auto) 0.3, Absolute Neuts (auto) 23.4 H, Absolute Lymphs (auto) 3.23, Nucleated RBC % 0.8, Differential Comment SCANNED, Diff Path Review December06/11/22 10:59: POC Glucose 88 06/11/22 16:20: WBC 28.0 H, RBC 2.95 L, Hgb 9.0 L, Hct 27.9 L, MCV 94.6, MCH 30.5, MCHC 32.3, RDW Std Deviation 52.4 H, RDW Coeff of [place]enny 15.2 H, Plt Count 164, MPV 10.9 06/11/22 16:20: PT 13.9, INR 1.1, APTT > 200.0 H* 06/11/22 16:20: Sodium 125 L, Potassium 4.1, Chloride 91 L, Carbon Dioxide 24.0, Anion Gap 10, BUN 12, Creatinine 0.61, Estim Creat Clear Calc 115.61, Est GFR (MDRD) Af Amer 150, Est GFR (MDRD) Non-Af 124, BUN/Creatinine Ratio 19.5, Glucose 106, Uric Acid 3.5, Calcium 7.9 L, Total Bilirubin 0.80, AST 87 H, ALT 30, Alkaline Phosphatase 84, Total Protein 5.2 L, Albumin 1.7 L, Globulin 3.5, Albumin/Globulin Ratio 0.5 L 06/11/22 18:41: PT 12.9, INR 1.0, APTT 29.6, Fibrinogen 289 06/11/22 18:41: Lactate Dehydrogenase 404 H 06/11/22 18:41: D-Dimer Quant (PE/DVT) 2.10 H* 06/12/22 03:13: PT 12.0, INR 0.9, APTT 30.8, Fibrinogen 553 H, D-Dimer Quant (PE/DVT) 1.85 H* 06/12/22 03:13: Sodium 134 L, Potassium 4.1, Chloride 100, Carbon Dioxide 26.0, Anion Gap 8, BUN 14, Creatinine 0.72, Estim Creat Clear Calc 97.95, Est GFR (MDRD) Af Amer 125, Est GFR (MDRD) Non-Af 103, BUN/Creatinine Ratio 19.4, Glucose 121 H, Calcium 6.3 L*, Magnesium 7.0 H*, Total Bilirubin 0.60, AST 76 H, ALT 32, Alkaline Phosphatase 98, Lactate Dehydrogenase 413 H, Total Protein 5.7 L, Albumin 1.9 L, Globulin 3.8, Albumin/Globulin Ratio 0.5 L 06/12/22 03:13: WBC 25.9 H, RBC 2.93 L, Hgb 9.4 L, Hct 27.4 L, MCV 93.5, MCH 32.1 H, MCHC 34.3 D, RDW Std Deviation 52.9 H, RDW Coeff of [place] 15.5 H, Plt Count 177, MPV 10.5 Radiology Impression Abdomen Ultrasound 06/11/22 05:27 IMPRESSION: 1. No convincing evidence for acute cholecystitis no sonographic Belle''s sign noted to be absent. 2. Pericholecystic fluid versus small volume ascites. 3. Mild right hydronephrosis. This can be further investigated with CT. Electronically Signed: Ward Benoit MD at 17:03 EDT , Charges/Coding Visit Charges Inpatient E&M: 61725 Init Hosp L2
[2022-06-12] MEDS: Senna/Docusate Sodium 1 Tablet PO (09:39)
--- NOTE | 2022-06-12 09:58 | PN.OBGYN_ITS ---
Subjective Subjective Patient is laying in bed comfortably without complaints. She states that she slept on an off during the night. Lochia is mild and pain is minimal. Her vision is Cross-eyed this am but her shortness of breath is improved. Nursing called last night with critical magnesium levels of 7, I discussed with the patient t hat this is typical with continued use of magnesium sulfate and we will stop this today. Objective Data Objective Data Vital Signs: Vital Signs Temp Pulse Resp BP Pulse Ox O2 Del Method 98.2 F 100 14 140/99 H 98 Room Air 06/12/22 09:00 06/12/22 09:00 06/12/22 09:00 06/12/22 09:00 06/12/22 09:00 06/12/22 09:00 Oxygen Delivery Method Room Air Weight: 133 lb 9.6 oz Body Mass Index (BMI) 23.9 Intake & Output: Intake and Output for Last 24 Hours 06/10/22 06/11/22 06/12/22 23:59 23:59 23:59 Intake Total 3920 / 3920 2925.83 / 3025.83 742.5 / 742.5 Output Total 2700 / 2700 6885 / 6985 1325 / 1325 Balance 1220 / 1220 -3959.17 / -3959.17 -582.5 / -582.5 Lab / Micro Data Result Diagrams: 06/12/22 03:13 06/12/22 03:13 Labs: Laboratory Results - last 24 hr 06/09/22 22:30: Diff Path Review Reviewed 06/11/22 03:53: Diff Path Review Reviewed 06/11/22 10:00: Sodium 135 L, Potassium 4.4, Chloride 104, Carbon Dioxide 24.0, Anion Gap 7, BUN 14, Creatinine 0.76, Estim Creat Clear Calc 92.79, Est GFR (MDRD) Af Amer 117, Est GFR (MDRD) Non-Af 97, BUN/Creatinine Ratio 18.3, Glucose 96, Calcium 7.4 L, Magnesium 5.6 H*, Total Bilirubin 0.60, AST 105 H, ALT 35, Alkaline Phosphatase 90, Total Protein 5.3 L, Albumin 1.8 L, Globulin 3.5, Albumin/Globulin Ratio 0.5 L 06/11/22 10:00: WBC 29.3 H, RBC 2.98 L, Hgb 9.4 L, Hct 28.0 L, MCV 94.0, MCH 31.5, MCHC 33.6, RDW Std Deviation 51.4 H, RDW Coeff of Yenny 15.1 H, Plt Count 139 L, MPV 11.1, Immature Gran % (Auto) 3.000 H, Neut % (Auto) 79.7 H, Lymph % (Auto) 11.0 L, [place] % (Auto) 5.9, Eos % (Auto) 0.1, Baso % (Auto) 0.3, Absolute Neuts (auto) 23.4 H, Absolute Lymphs (auto) 3.23, Nucleated RBC % 0.8, Differential Comment SCANNED, Diff Path Review December06/11/22 10:59: POC Glucose 88 06/11/22 16:20: WBC 28.0 H, RBC 2.95 L, Hgb 9.0 L, Hct 27.9 L, MCV 94.6, MCH 30.5, MCHC 32.3, RDW Std Deviation 52.4 H, RDW Coeff of Yenny 15.2 H, Plt Count 164, MPV 10.9 06/11/22 16:20: PT 13.9, INR 1.1, APTT > 200.0 H* 06/11/22 16:20: Sodium 125 L, Potassium 4.1, Chloride 91 L, Carbon Dioxide 24.0, Anion Gap 10, BUN 12, Creatinine 0.61, Estim Creat Clear Calc 115.61, Est GFR (MDRD) Af Amer 150, Est GFR (MDRD) Non-Af 124, BUN/Creatinine Ratio 19.5, Glucose 106, Uric Acid 3.5, Calcium 7.9 L, Total Bilirubin 0.80, AST 87 H, ALT 30, Alkaline Phosphatase 84, Total Protein 5.2 L, Albumin 1.7 L, Globulin 3.5, Albumin/Globulin Ratio 0.5 L 06/11/22 18:41: PT 12.9, INR 1.0, APTT 29.6, Fibrinogen 289 06/11/22 18:41: Lactate Dehydrogenase 404 H 06/11/22 18:41: D-Dimer Quant (PE/DVT) 2.10 H* 06/12/22 03:13: PT 12.0, INR 0.9, APTT 30.8, Fibrinogen 553 H, D-Dimer Quant (PE/DVT) 1.85 H* 06/12/22 03:13: Sodium 134 L, Potassium 4.1, Chloride 100, Carbon Dioxide 26.0, Anion Gap 8, BUN 14, Creatinine 0.72, Estim Creat Clear Calc 97.95, Est GFR (MDR D) Af Amer 125, Est GFR (MDRD) Non-Af 103, BUN/Creatinine Ratio 19.4, Glucose 121 H, Calcium 6.3 L*, Magnesium 7.0 H*, Total Bilirubin 0.60, AST 76 H, ALT 32, Alkaline Phosphatase 98, Lactate Dehydrogenase 413 H, Total Protein 5.7 L, Albumin 1.9 L, Globulin 3.8, Albumin/Globulin Ratio 0.5 L 06/12/22 03:13: WBC 25.9 H, RBC 2.93 L, Hgb 9.4 L, Hct 27.4 L, MCV 93.5, MCH 32.1 H, MCHC 34.3 D, RDW Std Deviation 52.9 H, RDW Coeff of Yenny 15.5 H, Plt Count 177, MPV 10.5 Micro: Microbiology 06/11/22 05:30 Urine Catheter - Vinson Urine Culture - Preliminary Culture exhibits no growth. 06/09/22 20:20 Nasal Secretion SARS-CoV-2 Antigen (Rapid) - Final Radiography Diagnostic Testing: Radiology Impression Abdomen Ultrasound 06/11/22 05:27 IMPRESSION: 1. No convincing evidence for acute cholecystitis no sonographic Belle''s sign noted to be absent. 2. Pericholecystic fluid versus small volume ascites. 3. Mild right hydronephrosis. This can be further investigated with CT. Electronically Signed: Ward Benoit MD at 17:03 EDT , ROS Constitutional Constitutional: Reports systems reviewed and no addt'l complaints, except as documented Cardiovascular Cardiovascular: Denies chest pain, dizziness, dyspnea or irregular heart rhythm Respiratory/Chest Respiratory/Chest: Denies cough, pain on inspiration or shortness of breath at rest Gastrointestinal Gastrointestinal: Denies abdominal pain, nausea or vomiting Genitourinary Genitourinary: Denies burning urination Musculoskeletal Musculoskeletal: Denies muscle cramps, muscle spasms or muscle weakness Neurologic Neurologic: Denies confusion, dizziness, headache(s) or lack of coordination Psychiatric Psychiatric: Denies anxiety, behavioral changes or depression Physical Exam HEENT normocephalic Resp normal respiratory effort and normal air movement GI soft to palpation, non-tender and non-distended Rectal Exam: other Other Details: Incision is clean, dry, and intact no CVA tenderness Extremity normal to inspection General Extremity: edema bilateral (trace ) Assessment & Plan (1) Status post section: COMMENT: 06/09/22- JV female -Mariana accreta and pp hemorrhage. (2) HELLP syndrome: COMMENT: heading into DIC based on PTT of >200 PLAN: HELLP syndrome is resolving as per labs - ok to move to daily labs stop magnesium today due to side effects start labetalol 100mg tid hold procardia likely will transfer back to L&D from ICU as does not appear to be in DIC based on labs this am. Greatly appreciate assistance from Dr. Montgomery and ICU team. (3) Pre-eclampsia:
[2022-06-12] MEDS: Labetalol 100 MG Tablet PO ×2 (12:48→22:05)
--- NOTE | 2022-06-12 13:38 | NURSING ---
report called to MARISOL Wei in [facility]
[2022-06-12 15:03] LABS: Pathology Specimen OB SEE PATHOLOGY REPORT
[2022-06-12 15:10] LABS: Pathologist Review Reviewed
[2022-06-12] MEDS: 0.9% Saline Lock 10 ML Syringe IV (18:18)
--- NOTE | 2022-06-12 19:45 | NURSING ---
report received that tyson was removed prior to pt coming down to this unit.
[2022-06-13] VITALS (10 sets, daily range): BP systolic 125–147; BP diastolic 70–88; PULSE 72–86; RESP 14–16; TEMP 36.4–37.1; O2SAT 98–99
[2022-06-13] MEDS: Ibuprofen 600 MG Tablet PO ×5 (00:22→23:53)
[2022-06-13] MEDS: Acetaminophen 500 MG Tablet 1000 MG PO ×4 (03:19→21:54)
[2022-06-13] MEDS: 0.9% Saline Lock 10 ML Syringe IV ×4 (04:48→21:55)
[2022-06-13 05:04] LABS: Hematocrit 24.2 % (37-47); Hemoglobin 7.8 g/dL (12.0-15.0); Mean Corp Hgb Conc 32.2 g/dL (32-36); Mean Platelet Vol. 9.9 fl (6.2-12.0); Platelet Count 170 K/mm3 (150-450); RBC Distribution Width CV 15.8 % (11.6-14.6); RBC Distribution Width SD 54.2 fl (35.1-43.9); Red Blood Count 2.52 M/mm3 (4.2-5.4); White Blood Count 16.9 K/mm3 (4.4-11.0)
[2022-06-13 05:26] LABS: ALB/GLOB Ratio 0.5 RATIO (0.9-2.4); AST(SGOT) 40 U/L (15-37); Alanine Aminotransfer ALT/SGPT 24 U/L (13-56); Albumin, Serum 1.8 g/dL (3.2-5.0); Alkaline Phosphatase 80 U/L (45-117); Anion Gap 7 (5-15); BUN 17 mg/dL (7-18); BUN/Creat Ratio 24.5 RATIO (10-20); Calcium,Total 7.3 mg/dL (8.5-10.1); Chloride 104 mmol/L (98-107); Creatinine, Serum 0.69 mg/dL (0.55-1.02); EST Glomerular Filtration Rate 108 mL/min (>60); Est Glom Filt Rate - Afr Amer 131 mL/min (>60); Estimated Creatinine Clearance 102.21 ml/min; Globulin 3.5 g/dL (2.2-4.2); Glucose 88 mg/dL (74-106); LDH 311 U/L (84-246); Potassium 4.6 mmol/L (3.5-5.1); Protein, Total 5.3 g/dL (6.4-8.2); Sodium Level 135 mmol/L (136-145); Uric Acid 3.3 mg/dL (2.6-6.0)
[2022-06-13 05:31] LABS: Fibrinogen 504 mg/dl (203-444); International Normalized Ratio 0.9; Partial Thromboplast Time 31.4 Seconds (24.1-36.2); Prothrombin Time (Protime)PT. 12.3 SECONDS (11.7-14.9)
[2022-06-13 05:52] LABS: D-Dimer Quantitative (DVT/PE) 1.95 FEU/ug/m (0.27-0.49)
[2022-06-13] MEDS: Labetalol 100 MG Tablet PO ×3 (06:02→21:54)
--- NOTE | 2022-06-13 06:57 | NURSING ---
After 0500, pt let this RN know that roughly after 0500 after her labs were drawn, she noticed slight blurred vision but not bad and said she just wanted to let me know incase anything else is related to that.
[2022-06-13] MEDS: Senna/Docusate Sodium 1 Tablet PO (09:25)
--- NOTE | 2022-06-13 13:32 | PCM.PN.OB ---
Subjective Subjective Patient is up walking around room and states that she feelsthe best she has felt since delivery. Still having some shaking issues, no vaginal bleeding or shortness of breath today. Her D-dimer went up slightly abut her hg dropped down to 7.8 from 9. Objective Data Objective Data Vital Signs: Vital Signs Temp Pulse Resp BP Pulse Ox O2 Del Method 98.0 F 84 14 130/75 H 98 Room Air 06/13/22 12:15 06/13/22 12:15 06/13/22 12:15 06/13/22 12:15 06/13/22 08:52 06/13/22 08:52 Oxygen Delivery Method Room Air Weight: 129 lb 3.054 oz Body Mass Index (BMI) 23.9 Intake & Output: Intake and Output for Last 24 Hours 06/11/22 06/12/22 06/13/22 23:59 23:59 23:59 Intake Total 2925.83 / 3025.83 2154.75 / 2154.75 Output Total 6885 / 6985 1700 / 1700 Balance -3959.17 / -3959.17 454.75 / 454.75 Lab / Micro Data Result Diagrams: 06/13/22 04:55 06/13/22 04:55 Labs: Laboratory Results - last 24 hr 06/09/22 20:55: Crossmatch See Detail 06/11/22 10:00: Diff Path Review Reviewed 06/13/22 04:55: WBC 16.9 H, RBC 2.52 L, Hgb 7.8 L, Hct 24.2 L, MCV 96.0, MCH 31.0, MCHC 32.2 D, RDW Std Deviation 54.2 H, RDW Coeff of Yenny 15.8 H, Plt Count 170, MPV 9.9 06/13/22 04:55: PT 12.3, INR 0.9, APTT 31.4, Fibrinogen 504 H, D-Dimer Quant (PE/DVT) 1.95 H* 06/13/22 04:55: Sodium 135 L, Potassium 4.6, Chloride 104, Carbon Dioxide 24.0, Anion Gap 7, BUN 17, Creatinine 0.69, Estim Creat Clear Calc 102.21, Est GFR (MDRD) Af Amer 131, Est GFR (MDRD) Non-Af 108, BUN/Creatinine Ratio 24.5 H, Glucose 88, Uric Acid 3.3, Calcium 7.3 L, Total Bilirubin 0.50, AST 40 H, ALT 24, Alkaline Phosphatase 80, Lactate Dehydrogenase 311 H, Total Protein 5.3 L, Albumin 1.8 L, Globulin 3.5, Albumin/Globulin Ratio 0.5 L Micro: Microbiology 06/11/22 05:30 Urine Catheter - Vinson Urine Culture - Final Culture exhibits no growth. 06/09/22 20:20 Nasal Secretion SARS-CoV-2 Antigen (Rapid) - Final ROS Constitutional Constitutional: Reports systems reviewed and no addt'l complaints, except as documented Cardiovascular Cardiovascular: Denies chest pain, dizziness, dyspnea or irregular heart rhythm Respiratory/Chest Respiratory/Chest: Denies cough, pain on inspiration or shortness of breath at rest Gastrointestinal Gastrointestinal: Denies abdominal pain, nausea or vomiting Genitourinary Genitourinary: Denies burning urination Musculoskeletal Musculoskeletal: Denies muscle cramps, muscle spasms or muscle weakness Neurologic Neurologic: Denies confusion, dizziness, headache(s) or lack of coordination Psychiatric Psychiatric: Denies anxiety, behavioral changes or depression Physical Exam HEENT normocephalic Resp normal respiratory effort and normal air movement GI soft to palpation, non-tender and non-distended Rectal Exam: other Other Details: Incision is clean, dry, and intact no CVA tenderness Extremity normal to inspection General Extremity: edema bilateral (trace ) Assessment & Plan (1) Status post section: COMMENT: 06/09/22- JV female -Mariana accreta and pp hemorrhage. (2) HELLP syndrome: COMMENT: heading into DIC based on PTT of >200 rpt less than 3 hours later showed normal PTT and she spent 1 night under observation in the ICU. (3) Pre-eclampsia: PLAN: continue three times daily labetalol and q 4 hr vital signs PLAN: Plan repeat cbc tonight and coags/d-dimer, fibrinogen, cmp in am if stable consider dc to home tomorrow.
[2022-06-13 17:56] LABS: Hematocrit 25.9 % (37-47); Hemoglobin 8.6 g/dL (12.0-15.0); Mean Corp Hgb Conc 33.2 g/dL (32-36); Mean Corpuscular Hgb 31.5 pg (27.0-32.0); Mean Corpuscular Volume 94.9 fL (81-99); Mean Platelet Vol. 10.1 fl (6.2-12.0); Platelet Count 203 K/mm3 (150-450); RBC Distribution Width CV 15.9 % (11.6-14.6); RBC Distribution Width SD 54.4 fl (35.1-43.9); Red Blood Count 2.73 M/mm3 (4.2-5.4); White Blood Count 14.5 K/mm3 (4.4-11.0)
[2022-06-14 01:28] VITALS: BP 142/80; PULSE 70; TEMP 36.8
[2022-06-14] MEDS: Acetaminophen 500 MG Tablet 1000 MG PO ×2 (03:40→09:52)
[2022-06-14] MEDS: Labetalol 100 MG Tablet PO (06:06)
[2022-06-14] MEDS: Ibuprofen 600 MG Tablet PO (06:06)
[2022-06-14 06:26] LABS: Absolute Neutrophil Count 8.4 X10^3/uL (2.0-7.7); Basophil# 0.06 X10^3/uL; Basophil% 0.5 % (0-1); Eosinophil# 0.13 X10^3/uL; Hemoglobin 8.2 g/dL (12.0-15.0); Mean Corp Hgb Conc 31.5 g/dL (32-36); Mean Corpuscular Hgb 30.3 pg (27.0-32.0); Mean Corpuscular Volume 95.9 fL (81-99); Mean Platelet Vol. 9.7 fl (6.2-12.0); Monocyte# 0.83 X10^3/uL; Monocyte% 6.4 % (0-10); NRBC Flagged by Analyzer 0.5 % (0-5); Neutrophil # 8.36 X10^3/uL (2.7-7.7); Neutrophil % 64.2 % (47-70); Platelet Count 216 K/mm3 (150-450); RBC Distribution Width CV 15.9 % (11.6-14.6); RBC Distribution Width SD 54.7 fl (35.1-43.9); Red Blood Count 2.71 M/mm3 (4.2-5.4)
[2022-06-14 06:36] LABS: International Normalized Ratio 0.9; Prothrombin Time (Protime)PT. 11.9 SECONDS (11.7-14.9)
[2022-06-14 06:37] LABS: Fibrinogen 524 mg/dl (203-444); Partial Thromboplast Time 29.3 Seconds (24.1-36.2)
[2022-06-14 06:39] LABS: D-Dimer Quantitative (DVT/PE) 2.18 FEU/ug/m (0.27-0.49)
[2022-06-14 06:47] LABS: ALB/GLOB Ratio 0.5 RATIO (0.9-2.4); AST(SGOT) 34 U/L (15-37); Alanine Aminotransfer ALT/SGPT 28 U/L (13-56); Albumin, Serum 2.1 g/dL (3.2-5.0); Alkaline Phosphatase 84 U/L (45-117); Anion Gap 7 (5-15); BUN 16 mg/dL (7-18); BUN/Creat Ratio 24.9 RATIO (10-20); Chloride 103 mmol/L (98-107); Creatinine, Serum 0.64 mg/dL (0.55-1.02); EST Glomerular Filtration Rate 118 mL/min (>60); Est Glom Filt Rate - Afr Amer 143 mL/min (>60); Estimated Creatinine Clearance 110.19 ml/min; Glucose 91 mg/dL (74-106); Potassium 4.3 mmol/L (3.5-5.1); Protein, Total 6.1 g/dL (6.4-8.2); Sodium Level 135 mmol/L (136-145)
--- NOTE | 2022-06-14 07:45 | NURSING ---
report given to Alexx Robles RN who is assuming care of pt at this time
--- NOTE | 2022-06-14 08:39 | PCM.DC.SUM ---
Providers Date of Admission: 06/09/22 Primary Care Physician: Dr. Shawanda Ortega DO Reason For Visit: C SECTION Diagnosis Discharge Diagnosis (1) Status post section: Status: Acute Code(s): Z98.891 - History of uterine scar from previous surgery (2) HELLP syndrome: Status: Acute Code(s): O14.20 - HELLP syndrome (HELLP), unspecified trimester (3) Pre-eclampsia: Status: Acute Code(s): O14.90 - Unspecified pre-eclampsia, unspecified trimester Plan: continue three times daily labetalol and q 4 hr vital signs Plan repeat cbc tonight and coags/d-dimer, fibrinogen, cmp in am if stable consider dc to home tomorrow. Medications at Discharge Home Medications prenat.vits,andrea,[id number] 1 tab PO DAILY 10/21/18 albuterol 90 mcg/actuation aerosol inhaler 90 mcg inhalation PRN PRN asthma 06/06/22 ferrous sulfate 325 mg (65 mg iron) tablet (iron) 325 mg PO DAILY anemia 06/06/22 ibuprofen 600 mg tablet 600 mg PO Q6H PRN pain (scale score 4-6) 7 days #28 tabs 06/14/22 labetalol 100 mg tablet 100 mg PO TID #120 tabs 06/14/22 oxycodone-acetaminophen 5 mg-325 mg tablet (Percocet) 1 tab PO Q4H PRN pain 7 days #20 tabs 06/14/22 Hospital Course Operations section and - Summary of Care Provided Minutes Spent on Discharge: 30 Hospital Course: Angelique Sauer is a 26 y/o who presented to Labor and delivery on 06/09/22 with severe range blood pressures and pre-eclampsia at 35 weeks, 3 days gestation. She had a known low lying placenta and IVF . Maternal medicine recommended LTCD due to the low location of the placenta. During surgery on 06/09/22 She was found to have a partial accreta diagnosed in surgery due to adherence of the placenta to the endometrium and myometrium. The placenta was cleared away from the muscle and she recovered well from surgery. Late in the evening on post op day #2 she started having severe range blood pressures again and PIH labs were repeated. She was found to have an elevation in her liver function tests and a drop in her platelets. She was then noted to be in HELLP syndrome. Magnesium sulfate was initiated and she was moved from her post room to a room closer to the nurses station. On post op day #3 she was moved to the ICU when her LFTs continued to trend up and plts continued to trend down and clotting factors increased. There was concern for DIC until the coagulation profile was repeated and found to be only slightly elevated. The blood bank was called to reserve 2 units of platelets earlier in her stay but not used as the her levels then increased during her night stay in the ICU. On post op day #4 she was moved back to L&D where serial blood pressures and vital signs were continued. Her pulse was initially tachycardic up to the 130's but improved with changing her bp medication from procardia to labetalol. Her platelet levels continue to increase, liver function test continued to trend down, and hg was found to be stable by post op day #5. Although her D-dimer increased slightly on her last hosptial day, she was found to be asymptomatic and the decision was made to discharge to home for close outpatient observation. Physical Exam HEENT normocephalic Resp normal respiratory effort and normal air movement GI soft to palpation, non-tender and non-distended Rectal Exam: other Other Details: Incision is clean, dry, and intact no CVA tenderness Extremity normal to inspection General Extremity: edema bilateral (trace ) Weight / BMI Weight Weight: 129 lb 3.054 oz Body Mass Index (BMI) 23.9 ABG / Lab / Microbiology Data Result Diagrams: 06/14/22 06:10 06/14/22 06:10 Laboratory: Laboratory Results - last 24 hr 06/13/22 17:30: WBC 14.5 H, RBC 2.73 L, Hgb 8.6 L, Hct 25.9 L, MCV 94.9, MCH 31.5, MCHC 33.2, RDW Std Deviation 54.4 H, RDW Coeff of Eynny 15.9 H, Plt Count 203, MPV 10.1 06/14/22 06:10: PT 11.9, INR 0.9, APTT 29.3, Fibrinogen 524 H, D-Dimer Quant (PE/DVT) 2.18 H* 06/14/22 06:10: Sodium 135 L, Potassium 4.3, Chloride 103, Carbon Dioxide 25.0, Anion Gap 7, BUN 16, Creatinine 0.64, Estim Creat Clear Calc 110.19, Est GFR (MDRD) Af Amer 143, Est GFR (MDRD) Non-Af 118, BUN/Creatinine Ratio 24.9 H, Glucose 91, Calcium 8.0 L, Total Bilirubin 0.40, AST 34, ALT 28, Alkaline Phosphatase 84, Total Protein 6.1 L, Albumin 2.1 L, Globulin 4.0, Albumin/Globulin Ratio 0.5 L 06/14/22 06:10: WBC 13.0 H, RBC 2.71 L, Hgb 8.2 L, Hct 26.0 L, MCV 95.9, MCH 30.3, MCHC 31.5 L D, RDW Std Deviation 54.7 H, RDW Coeff of Yenny 15.9 H, Plt Count 216, MPV 9.7, Immature Gran % (Auto) 4.900 H, Neut % (Auto) 64.2, Lymph % (Auto) 23.0, [place] % (Auto) 6.4, Eos % (Auto) 1.0, Baso % (Auto) 0.5, Absolute Neuts (auto) 8.4 H, Absolute Lymphs (auto) 3.00, Nucleated RBC % 0.5 Microbiology: Microbiology 06/11/22 05:30 Urine Catheter - Vinson Urine Culture - Final Culture exhibits no growth. 06/09/22 20:20 Nasal Secretion SARS-CoV-2 Antigen (Rapid) - Final D/C Instructions Discharge Diet: No restrictions May resume sexual activity in: 4-6 weeks Weight Bearing Status: Full weight bearing Call your doctor if your incision/area has: Continuous Slow Oozing, Sudden Increased Bleeding, Increased Pain/ Swelling, Increased Redness and Foul Smelling Discharge Call your doctor if you observe: Fever of 101 or Higher and Using more than 1 pad per hour Suture Line Care: Avoid Pulling/Pushing and Avoid Pinching/Bending Cleanse incision/area with: Soap & Water and Keep Dressing Clean & Dry Please Follow Up With: Mya Cantu DO When: Call [phone] to make an appointment for an incision check in 1-2 weeks. Meaningful Use Info Meaningful Use Diagnoses (Choose all that apply): None applicable Discharge Plan Admission Admit Date/Time: 06/09/22 20:10 Primary Reason for Your Visit: section, HELLP syndrome treatment Attending Provider: Mya Cantu Primary Care Provider: Shawanda Ortega Discharge Orders/Prescriptions Prescriptions: New labetalol 100 mg tablet 100 mg PO TID Qty: 120 3RF Rx Instructions: take 100 in am, 200 in afternoon, and 100 at bedtime (all 8 hours apart) ibuprofen 600 mg tablet 600 mg PO Q6H PRN (Reason: pain (scale score 4-6)) 7 Days Qty: 28 0RF Rx Instructions: one tab every 6 hrs as needed for mild to moderate pain oxycodone-acetaminophen [Percocet] 5-325 mg tablet 1 tab PO Q4H PRN (Reason: pain) 7 Days Qty: 20 0RF Continued prenat.vits,andrea,[id number] tablet 1 tab PO DAILY ferrous sulfate [iron] 325 mg (65 mg iron) Tablet 325 mg PO DAILY albuterol 90 mcg/actuation Aerosol 90 mcg INHALATION PRN PRN (Reason: asthma) Referrals / Follow Up: Shawanda Ortega DO [Primary Care Provider] - Disposition Disposition (needs filled in before D/C Order can be placed): Home, Self Care
[2022-06-14 09:43] VITALS: BP 137/74; PULSE 77; RESP 16; TEMP 36.7; O2SAT 99
[2022-06-14] MEDS: Senna/Docusate Sodium 1 Tablet PO (09:56)
--- NOTE | 2022-06-14 10:04 | NURSING ---
1000- This RN IBCLC in room to see how family feels with feeding plan going home. Nursing has been going well and pt. is getting a good amount of milk while pumping after feeds. Follow up visit made for 9am on Saturday to continue to provide support and assess transition of patient's milk supply.
--- NOTE | 2022-06-15 10:58 | CM.ED ---
JERAMY Note Referral Source: [facility] Referral Reason: Patient was in ICU after delivery SW reviewed chart and no mention of history of depression in chart. Reason this law writer is speaking to patient is that she was in ICU after her delivery and due to the trauma and stress of that experience. SW called patient at 10:37am and left voice mail to call this law writer. SW received call from patient. She said that things are going good and she is glad to be home. Patient said that she is feeling well. Voiced no concerns. SW validated the experience of being in ICU after delivery and Nora stated that she is glad to be home now and thta has been helpful. No concerns or needs voiced. SW educated patient on PPD. NO further issues or concerns voiced. Caterina VALENTIN
--- NOTE | 2022-06-18 09:36 | NURSING ---
Follow up phone call questions addressed at Sat. 06/16's visit. Mother denies headache, dizziness, blurred vision, or pain. Mother reports she feels much better than when she was here as a patient. Working on infant and we plan to provide continued support and weight checks moving forward. scheduled with Florentino for Saturday. Mother reports she does have a scale at home to help monitor her baby's weight gain. See consult note on baby. Was satisfied with the care she received and denies further questions or concerns.
== END 2022-06-14 11:20 | disposition home or self-care (01) | DRG 786 ==
LOC: WPOUT 20:12 → WP 20:12 → ICU 06-11 19:53 → WP 06-12 14:29
PROVIDERS: Registered Nurse; Admitting Provider Obstetrics & Gynecology; PCP Family Medicine; Visit Provider Obstetrics & Gynecology
DX: O14.24 HELLP syndrome, complicating childbirth (principal); D65 Disseminated intravascular coagulation [defibrination syndrome]; O99.12 Other diseases of the blood and blood-forming organs and certain disorders involving the immune mechanism complicating childbirth; J45.909 Unspecified asthma, uncomplicated; O44.53 Low lying placenta with hemorrhage, third trimester; Z3A.35 35 weeks gestation of pregnancy; Z37.0 Single live birth; O43.213 Placenta accreta, third trimester; O99.02 Anemia complicating childbirth; O99.52 Diseases of the respiratory system complicating childbirth; Z79.899 Other long term (current) drug therapy; O99.892 Other specified diseases and conditions complicating childbirth; N83.7 Hematoma of broad ligament
CPT/HCPCS: 59025; 59050; 76705; 80053; 81001; 82140; 82150; 82247; 82248; 82565; 82570; 82962; 83615; 83690; 83735; 84156; 84450; 84460; 84550; 85025; 85027; 85379; 85384; 85610; 85730; 86850; 86900; 86901; 86920; 87086; 87426; 88307; 99218; J7120; A4216; G0378; J2405

== ENCOUNTER → 2022-08-16 | Outpatient (CLI) | payer BC, SELFPAY ==
[2022-08-16 12:24] LABS: Cholesterol 170 mg/dL (200); Glucose 90 mg/dL (74-106); High Density Lipoprotein 64 mg/dL; Triglycerides 38 mg/dL; Very Low Density Lipoprotein 8 mg/dL (5-40)
== END | disposition home or self-care (01) ==
LOC: BFHLAB 08:33
PROVIDERS: PCP Family Medicine; Visit Provider Family Medicine
DX: Z13.220 Encounter for screening for lipoid disorders (principal); Z13.1 Encounter for screening for diabetes mellitus
CPT/HCPCS: 36415; 80061; 82947

== ENCOUNTER → 2024-12-31 | Outpatient (CLI) | payer OTHER, SELFPAY ==
[2024-12-31 17:49] LABS: Absolute Lymphocyte Count 2.79 X10^3/uL (0.83-4.51); Absolute Neutrophil Count 3.7 X10^3/uL (2.0-7.7); Basophil# 0.05 X10^3/uL; Basophil% 0.7 % (0-1); Eosinophils% 1.4 % (0-5); Hematocrit 37.1 % (37-47); Hemoglobin 12.3 g/dL (12.0-15.0); Lymphocyte # 2.79 X10^3/ul (0.83-4.51); Mean Corp Hgb Conc 33.2 g/dL (32-36); Mean Corpuscular Hgb 29.1 pg (27.0-32.0); Mean Corpuscular Volume 87.7 fL (81-99); Mean Platelet Vol. 9.8 fl (6.2-12.0); Monocyte# 0.55 X10^3/uL; Monocyte% 7.7 % (0-10); NRBC Flagged by Analyzer 0 % (0-5); Neutrophil # 3.66 X10^3/uL (2.7-7.7); Neutrophil % 51.1 % (47-70); Platelet Count 264 K/mm3 (150-450); RBC Distribution Width CV 13.7 % (11.6-14.6); RBC Distribution Width SD 43.8 fl (35.1-43.9); Red Blood Count 4.23 M/mm3 (4.2-5.4); White Blood Count 7.2 K/mm3 (4.4-11.0)
[2024-12-31 18:21] LABS: ALB/GLOB Ratio 1.4 RATIO (0.9-2.4); AST(SGOT) 22 U/L (<=31); Alanine Aminotransfer ALT/SGPT 13 U/L (<=34); Albumin, Serum 4.5 g/dL (3.5-5.0); Alkaline Phosphatase 35 U/L (35-104); Anion Gap 12 (5-15); BUN 17 mg/dL (4-19); BUN/Creat Ratio 21.1 RATIO (10-20); Calcium,Total 9.5 mg/dL (7.6-11.0); Chloride 101 mmol/L (98-108); Creatinine, Serum 0.81 mg/dL (0.70-1.20); EST Glomerular Filtration Rate 100 (>60); Free T3 2.8 pg/mL (2.18-3.98); Globulin 3.1 g/dL (2.2-4.2); Glucose 78 mg/dL (70-99); Potassium 3.7 mmol/L (3.3-5.1); Protein, Total 7.6 g/dL (5.9-8.4); Sodium Level 136 mmol/L (133-145); Total Bilirubin 1.16 mg/dL (0.00-1.30)
[2025-01-06 12:09] LABS: Anti-Thyroglobulin AB < 1.0 IU/mL (0.0-0.9); Thyroglobulin, Serum Qt. 6.9 ng/mL (1.5-38.5); Thyroid Peroxidase AB 9 IU/mL (0-34)
== END | disposition home or self-care (01) ==
LOC: MTLAB 15:56
PROVIDERS: PCP Family Medicine; Referring Provider Family Medicine; Visit Provider Family Medicine
DX: E03.9 Hypothyroidism, unspecified (principal); R61 Generalized hyperhidrosis
CPT/HCPCS: 36415; 80053; 84432; 84439; 84443; 84481; 85025; 86376; 86800